=== PATIENT | male | born 1950 | race Caucasian/White ===

== ENCOUNTER 2017-08-25 13:30 | Inpatient (IN) | payer OTHER, SELFPAY ==
[2017-08-25] VITALS (20 sets, daily range): BP systolic 110–152; BP diastolic 39–118; PULSE 62–94; RESP 15–24; TEMP 37.6–38.6; O2SAT 93–100; BMI 20.5
--- NOTE | 2017-08-25 13:39 | DI.RAD.S_ITS ---
PROCEDURE: XR CHEST 1V INDICATIONS: ET TUBE AND NG TUBE PLACEMENT/ Post intubation TECHNIQUE: One view of the chest was acquired. COMPARISON: None. FINDINGS: Surgical changes and devices: Esophagogastric tube extends in normal position with the side port below the EG junction. Endotracheal tube tip approximates the kamar at approximately 2.6 cm above.. Lungs and pleura: No pleural effusions or pneumothorax. Lungs are abnormal with asymmetric mild alveolar infiltration behind the left heart when compared to the right lung base medially. Mediastinum: Mediastinal contours appear normal. Heart size is normal. Bones and chest wall: No suspicious bony lesions. Overlying soft tissues appear unremarkable. IMPRESSION: Asymmetric pneumonia pattern, left greater than right, best seen at the retrocardiac left lower lobe. Endotracheal tube approaches within 2.6 cm of the kamar, and could be withdrawn several centimeters safely. Esophagogastric tube in normal position. Dictated by: Kaden Murillo M.D. on 08/25/2017 at 14:03 Approved by: Kaden Murillo M.D. on 08/25/2017 at 14:04
[2017-08-25] MEDS: PROPOFOL 1,000 MG/100 ML VIAL 3.9 MG IV (13:50)
[2017-08-25] MEDS: PROPOFOL 200 MG/20 ML VIAL 100 MG IV ×2 (13:50→14:35)
--- NOTE | 2017-08-25 13:53 | ED.SEIZURE ---
HPI - Seizure General Chief Complaint: Seizure Stated Complaint: Altered mental status/ Seizure Time Seen by Provider: 08/25/17 13:36 Source: EMS Mode of arrival: EMS Limitations: other (Intubated) History of Present Illness HPI Narrative: HPI provided by EMS. EMS states that patient lives on [facility]. They state that patient is ?well-known ?to the paramedics [facility] for being noncompliant with his seizure medications. Is reported that the patient had a seizure this morning. EMS providing this report was the in flight refueling manager. They state that when they arrived the patient was no longer seizing. They stated that the seizure stopped after the ground paramedics had given the patient 5 mg of Versed IM. They stated that the patient was hypoxic to the 80s and ?dusky ?upon their evaluation. They intubated him with succinylcholine and etomidate without complication. They state that during the RSI process the patient did have another seizure. They gave the patient 10 mg of IV Versed which they stated. Seizure-like activity. OG tube placed in transport. Right EJ placed in transport. Patient was also given rocuronium approximately 1 hr prior to arrival here in the emergency department for transport. Related Data Home Medications Medication Instructions Recorded Confirmed aspirin 81 mg PO DAILY 08/25/17 08/25/17 atorvastatin 80 mg PO QPM 08/25/17 08/25/17 carvedilol 3.125 mg PO BID 08/25/17 08/25/17 clopidogrel 75 mg PO DAILY 08/25/17 08/25/17 lamotrigine 150 mg PO BID 08/25/17 08/25/17 nitroglycerin [Nitrostat] 0.4 mg SUBLINGUAL Q5M PRN 08/25/17 08/25/17 Allergies Allergy/AdvReac Type Severity Reaction Status Date / Time codeine Allergy Mild Verified 08/25/17 13:41 Review of Systems Review of Systems due to endotracheal tube and unobtainable due to mental status [facility] Comment: Patient with history of seizure disorder non compliant per EMS no other past medical history surgical history social history available. Exam Initial Vital Signs Initial Vital Signs: Vital Signs Pulse Rate 73 08/25/17 13:27 Respiratory Rate 17 08/25/17 13:27 Pulse Oximetry 100 08/25/17 13:27 Const General: well groomed, in distress (Intubated) and No ill appearing Nutritional Appearance: average body habitus Limitations: other limitations (Intubated) [facility] Head: normal to inspection, normocephalic and atraumatic Nose: external nose normal Mouth: oral mucosae normal Eyes Other: Pupils 2 mm equal bilateral minimally reactive to light Resp Other: Patient intubated with 7.5 tube breath sounds bilateral Cardio Rate: tachycardic Pulses: radial pulses present GI Inspection: non-distended Palpation: soft and No firm Skin General: no rashes or lesions noted, No jaundice and No petechiae Neuro Other: Patient intubated however does withdrawal to pain. Is making would appear to be purposeful movements with left upper extremity which appear to be movements towards the endotracheal tube. Has moved all 4 extremities spontaneously however not to command. Extrem General: normal to inspection Course Orders Ordered: ED Orders 08/25/17 13:38 Complete Blood Count AUTO DIFF Stat Comprehensive Metabolic Panel Stat Lipase Stat 08/25/17 13:39 XR chest 1V Stat 08/25/17 13:42 EKG-12 Lead Routine 08/25/17 14:02 Arterial Blood Gas Stat 08/25/17 14:21 Procalcitonin Stat Propofol (Propofol) 1,000 mg in 100 mls @ 0 mls/hr IV TITRATE YOLANDA; Protocol Discontinued Medications Fentanyl (Sublimaze) 50 mcg IV NOW ONE Stop: 08/25/17 14:20 Levetiracetam 1,000 mg/ Sodium (Chloride) 110 mls @ 440 mls/hr IV NOW ONE Stop: 08/25/17 13:39 Last Admin: 08/25/17 14:22 Dose: 440 mls/hr Propofol (Diprivan) 100 mg IV NOW ONE Stop: 08/25/17 14:28 Propofol (Diprivan) 100 mg IV NOW ONE Stop: 08/25/17 14:30 Vital Signs - 8 hr 08/25/17 13:27 08/25/17 13:35 08/25/17 14:00 Pulse Rate 73 74 74 Respiratory Rate 17 24 17 Blood Pressure [Right Arm] 148/118 H 136/63 H Pulse Oximetry 100 99 100 08/25/17 14:23 Pulse Rate 73 Respiratory Rate 17 Blood Pressure [Right Arm] 152/73 H Pulse Oximetry 100 MDM - Seizure Lab Data Lab Results 08/25/17 Range/Units 14:02 ABG pH 7.41 (7.35-7.45) ABG pCO2 41.4 (35-45) mmHg ABG pO2 89 (80-105) mmHg ABG HCO3 26 (23-27) mmol/L ABG Total CO2 27 (23-27) mmol/L ABG O2 Saturation 97 (95-100) % ABG Base Excess 1.0 (-2-3) mmol/L FiO2 50 Imaging Data Chest x-ray: Radiologist's impression: PROCEDURE: XR CHEST 1V INDICATIONS: ET TUBE AND NG TUBE PLACEMENT/ Post intubation TECHNIQUE: One view of the chest was acquired. COMPARISON: None. FINDINGS: Surgical changes and devices: Esophagogastric tube extends in normal position with the side port below the EG junction. Endotracheal tube tip approximates the kamar at approximately 2.6 cm above.. Lungs and pleura: No pleural effusions or pneumothorax. Lungs are abnormal with asymmetric mild alveolar infiltration behind the left heart when compared to the right lung base medially. Mediastinum: Mediastinal contours appear normal. Heart size is normal. Bones and chest wall: No suspicious bony lesions. Overlying soft tissues appear unremarkable. IMPRESSION: Asymmetric pneumonia pattern, left greater than right, best seen at the retrocardiac left lower lobe. Endotracheal tube approaches within 2.6 cm of the kamar, and could be withdrawn several centimeters safely. Esophagogastric tube in normal position. Dictated by: Kaden Murillo M.D. on 08/25/2017 at 14:03 ECG Data Attestation: I personally reviewed and interpreted this ECG as follows: Prior ECG tracings: not available for review Interpretation: Time 1342 hr Sinus tachycardia Ventricular rate of 102 As needed oval 214 milliseconds Normal axis Normal QRS Normal QTC No ST T wave changes MDM Narrative Medical decision making narrative: Patient arrived to the emergency department intubated as described in the HPI. Patient was making would appear to be purposeful movements reaching at his endotracheal tube. I have low suspicion that he is continuing to have a seizure. He was given propofol here in the emergency department for sedation. His FiO2 was decreased from 50% to 40% after the ABG. Chest x-ray shows tube in correct position. Also has some discussion about possible pneumonia however patient clinically does not have pneumonia and no reports of pneumonia prior to this. Will hold on any antibiotics for now. Discussed the case with Dr. De León who will admit the patient for continued observation and evaluation. I did talk with the patient's sister over the phone and informed her that the patient was being admitted to the hospital. She states that she will come to the hospital. Discharge Plan Departure Patient Disposition: Admitted As Inpatient Clinical Impression: Generalized seizure, Acute respiratory distress, Respiratory depression
[2017-08-25 14:12] LABS: HCO3 ABG 26 mmol/L (23-27); PCO2 ABG 41.4 mmHg (35-45); PO2 ABG 89 mmHg (80-105); TCO2 ABG 27 mmol/L (23-27); pH ABG 7.41 (7.35-7.45)
[2017-08-25 14:13] LABS: Fractionated Inspired Oxygen 50; Oxygen Saturation ABG 97 % (95-100)
[2017-08-25] MEDS: levETIRAcetam 1,000 MG in SODIUM CHLORIDE 0.9% 100 ML 440 ML IV (14:22)
[2017-08-25] MEDS: fentaNYL 100 MCG/2 ML INJ 50 MCG IV ×2 (14:30→14:54)
--- NOTE | 2017-08-25 14:38 | PC.NURSE ---
1341 rt changed to biteblock.
--- NOTE | 2017-08-25 14:39 | PC.NURSE ---
1349 tube placement good and ogt good placement per dr childress
[2017-08-25 14:51] LABS: Add Manual Diff / Slide Review NO; Basophils Percent Auto 0.5 % (0-2); Hemoglobin 11.9 g/dL (13.5-17.5); Lymphocytes Percent Auto 6.7 % (25-40); Mean Corpuscular HGB Conc 33.9 % (30-36); Mean Corpuscular Hemoglobin 30.6 PG (26-34); Mean Corpuscular Volume 90.1 fL (80-100); Monocytes Percent Auto 6.3 % (3-14); Neutrophils Absolute Auto 12700 /uL (3000-5900); Neutrophils Percent Auto 86.5 % (50-75); Platelet Count 179 X10^3/uL (150-400); Red Blood Cell Count 3.88 X10^6/uL (4.5-5.9); Red Cell Distribution Width 13.9 % (11.6-14.8); White Blood Cell Count 14.7 X10^3/uL (4.5-11.0)
[2017-08-25 15:06] LABS: Alanine Aminotransferase 27 IU/L (21-72); Albumin 4.1 g/dL (3.5-5.0); Albumin Globulin Ratio 1.6 (1.0-2.8); Alkaline Phosphatase 66 U/L (38-126); Aspartate Aminotransferase 26 IU/L (17-59); Bilirubin Total 0.9 mg/dL (0.2-1.3); Blood Urea Nitrogen 12 mg/dL (9-20); Calcium 9.2 mg/dL (8.4-10.2); Carbon Dioxide 27 mmol/L (22-32); Chloride 104 mmol/L (98-107); Estimated Glomerular Filt Rate > 60.0 mL/min (>60); Globulin 2.6 g/dL (1.7-4.1); Glucose 131 mg/dL (80-110); HEMOLYSIS < 15 (0-50); Lipase 22 U/L (23-300); Potassium 3.5 mmol/L (3.4-5.1); Sodium 141 mmol/L (137-145); Total Protein 6.7 g/dL (6.3-8.2)
[2017-08-25] MEDS: PROPOFOL 200 MG/20 ML VIAL 50 MG IV (15:21)
[2017-08-25 15:33] LABS: Procalcitonin < 0.05 ng/mL (<0.5)
[2017-08-25] MEDS: DEXTROSE 5%-0.9% NS 1,000 ML 100 ML IV (16:45)
--- NOTE | 2017-08-25 16:46 | PC.NURSE ---
Addendum entered by Christy Cornejo R.N. 08/25/17 21:19: Pt with increased wakefulness. Denies any recollection of events leading up to admission. Pt asking who found me? and expressing concerns about his dogs. Pt sister called to check pt status. Pt able to speak to her on the phone. Pt reports his sister will contact a neighbor about checking on animals. Pt states that he has a headache, temp 101.1. APAP given. Dr. De León into check on pt. Updated to pt status. Monitor. Bed alarm on. Original Note: Pt to room at 1540, transfer to bed via slider board. Pt restless and agitated. Reaching for tubes and wires, kicking legs. RT present for vent management. Dr. De León into see pt. Pt not currently alert enough to follow commands. Propofol stopped per verbal order from Dr. De León. Assess ability to extubate. 1610 - Pt restless and agitation. Intermittently opens eyes to command. Kicking feet and sitting up bed. Page placed to Dr. De León. Pt extubated to room air. Suction for clear secretions, OG tube removed with extubation. O2 sats 95%. Pt turns to right side lying. Moaning. Brisk stimuli to encourage deep breath and cough. Pt sister, Krysta, in to see pt. States that Pt has been having nausea and vomiting a couple of days she states past medical history is [place] with stent placement, Seizures, Hx of ETOH abuse 2 years sober. She also states that every time he gets sick, he ends up having a seizure and [place] Pt TAYLA is his girl friend Chloe Pena, who is currently out of state. Krysta, She will notify Chloe Sharma. Pt restless in bed and moaning, it hurts Pt able to state that his back hurts, position right side lying. Remain drowsy. Encourage pt not to pull at tubes and wires. O2 sats 94% on RA.
[2017-08-25] MEDS: levoFLOXacin 500 MG/100 ML PIGGYBACK 100 MG IV (16:57)
[2017-08-25] MEDS: CARVEDILOL 3.125 MG TABLET PO (20:30)
[2017-08-25] MEDS: lamoTRIgine 100 MG TABLET 150 MG PO (20:30)
[2017-08-25] MEDS: ACETAMINOPHEN 325 MG TABLET 650 MG PO (20:54)
--- NOTE | 2017-08-25 21:18 | PM.HP.1 ---
History of Present Illness Date Patient Seen: 08/25/17 Time Patient Seen: 21:18 Chief complaint: Altered mental status/ Seizure Narrative: 67-year-old male with the known seizure disorder had a prolonged seizure today paramedics were called he evidently was seizing when they arrived and gave him Versed intramuscularly that helped stop the seizure. He had problems of breathing during the postictal. And had to be intubated his saturation reportedly dropped down to 80. During the intubation there was some vomiting and possible aspiration. He required more Versed 10 mg IV given after the intubation he also received some paralytics and other sedation. Here in the emergency room he was placed on the ventilator the tube was remained in place he also had oral gastric tube placed and he required sedation to keep him from pulling out the tubes. Patient evidently has a long history of recurrent seizures that have been difficult to control this is not the 1st time he has had prolonged seizures and problems. The patient is currently still unable to give much of a history and family or friends note that he has been having vomiting for a couple of days and probably was not taking his medications due to the vomiting. Patient History Medical History Chronic back pain (Acute) Myocardial infarction (Acute) Seizure disorder (Acute) Surgical History History of heart artery stent (Acute) Family & Social History Social History: household members significant other Tobacco & Substance use: alcohol intake former Substance Use Type marijuana Meds Home Medications Medication Instructions Recorded Confirmed Type aspirin 81 mg PO DAILY 08/25/17 08/25/17 History atorvastatin 80 mg PO QPM 08/25/17 08/25/17 History carvedilol 3.125 mg PO BID 08/25/17 08/25/17 History clopidogrel 75 mg PO DAILY 08/25/17 08/25/17 History lamotrigine 150 mg PO BID 08/25/17 08/25/17 History nitroglycerin [Nitrostat] 0.4 mg SUBLINGUAL Q5M PRN 08/25/17 08/25/17 History Allergies Allergy/AdvReac Type Severity Reaction Status Date / Time codeine Allergy Mild Verified 08/25/17 13:41 Review of Systems Review of Systems unobtainable due to mental status Exam Vital Signs (past 8 hours): Vital Signs - 8 hr 08/25/17 13:27 08/25/17 13:35 08/25/17 14:00 Temperature 99.7 F H Pulse Rate 73 74 74 Respiratory Rate 17 24 17 Blood Pressure Blood Pressure [Right Arm] 148/118 H 136/63 H Pulse Oximetry 100 99 100 08/25/17 14:15 08/25/17 14:20 08/25/17 14:23 Temperature Pulse Rate 94 H 73 73 Respiratory Rate 20 17 Blood Pressure Blood Pressure [Right Arm] 136/62 H 152/73 H 152/73 H Pulse Oximetry 97 100 100 08/25/17 14:30 08/25/17 15:03 08/25/17 15:21 Temperature Pulse Rate 78 68 72 Respiratory Rate 17 18 15 Blood Pressure Blood Pressure [Right Arm] 147/71 H 142/69 H 135/68 H Pulse Oximetry 100 100 08/25/17 15:40 08/25/17 16:10 08/25/17 17:00 Temperature 101.5 F H Pulse Rate 67 81 62 Respiratory Rate 22 18 22 Blood Pressure 152/72 H 150/65 H 133/50 H Blood Pressure [Right Arm] Pulse Oximetry 100 95 93 08/25/17 18:17 08/25/17 20:00 08/25/17 20:30 Temperature 101.1 F H Pulse Rate 67 65 69 Respiratory Rate 19 20 Blood Pressure 119/39 L 129/56 H 129/56 H Blood Pressure [Right Arm] Pulse Oximetry 95 08/25/17 20:54 Temperature 101.1 F H Pulse Rate Respiratory Rate Blood Pressure Blood Pressure [Right Arm] Pulse Oximetry Pulse Oximetry 95 Fraction of Inspired Oxygen 50 Oxygen Delivery Method Room Air Narrative Exam Narrative: Initially intubated and sedated oral endotracheal tube in place Head atraumatic Neck supple Lungs is mild coarse breath sounds Heart tachycardic Abdomen soft nontender Lower extremities no edema Skin warm and dry Neuro exam moving all 4 extremities attended due to the sedation Objective Labs Result Diagrams: 08/25/17 14:44 08/25/17 14:44 Labs: Laboratory Results - last 24 hr 08/25/17 08/25/17 08/25/17 14:02 14:44 14:44 WBC 14.7 H RBC 3.88 L Hgb 11.9 L Hct 35.0 L MCV 90.1 MCH 30.6 MCHC 33.9 RDW 13.9 Plt Count 179 Neut % (Auto) 86.5 H Lymph % (Auto) 6.7 L [place] % (Auto) 6.3 Eos % (Auto) 0.0 L Baso % (Auto) 0.5 Neut # (Auto) 02594 H ABG pH 7.41 ABG pCO2 41.4 ABG pO2 89 ABG HCO3 26 ABG Total CO2 27 ABG O2 Saturation 97 ABG Base Excess 1.0 FiO2 50 Sodium 141 Potassium 3.5 Chloride 104 Carbon Dioxide 27 BUN 12 Creatinine 0.60 L Estimated GFR > 60.0 BUN/Creatinine Ratio 20.0 Glucose 131 H Calcium 9.2 Total Bilirubin 0.9 AST 26 ALT 27 Alkaline Phosphatase 66 Total Protein 6.7 Albumin 4.1 Globulin 2.6 Albumin/Globulin Ratio 1.6 Lipase 22 L Procalcitonin Nasal Screen MRSA (PCR) 08/25/17 08/25/17 14:44 Unknown WBC RBC Hgb Hct MCV MCH MCHC RDW Plt Count Neut % (Auto) Lymph % (Auto) [place] % (Auto) Eos % (Auto) Baso % (Auto) Neut # (Auto) ABG pH ABG pCO2 ABG pO2 ABG HCO3 ABG Total CO2 ABG O2 Saturation ABG Base Excess FiO2 Sodium Potassium Chloride Carbon Dioxide BUN Creatinine Estimated GFR BUN/Creatinine Ratio Glucose Calcium Total Bilirubin AST ALT Alkaline Phosphatase Total Protein Albumin Globulin Albumin/Globulin Ratio Lipase Procalcitonin < 0.05 Nasal Screen MRSA (PCR) Negative for mrsa Assessment & Plan Plan: Assessment/Plan Narrative: One. Respiratory failure due to a prolonged seizures and possible aspiration pneumonia. The patient seems to be doing well on the ventilator so we actually turn him to pressure support let him wake up and extubated him within an hour of him coming to the ICU. 2. Probable aspiration pneumonitis he is having low but with fever plan to culture the blood and place him on Levaquin he is oxygenating well now just on nasal cannula 3. Recurrent seizures plan to place him back on the lamotrigine 4. History of coronary disease no signs of ongoing ischemia 5. DVT prophylaxis Lovenox to be used Time Spent With Patient Time with patient: Greater than 35 minutes Quality VTE Deep Vein Thrombosis/Pulmonary Embolism Present on Admission: No
--- NOTE | 2017-08-25 21:25 | P.HP_ITS ---
History of Present Illness Date Patient Seen: 08/25/17 Time Patient Seen: 21:18 Chief complaint: Altered mental status/ Seizure Narrative: 67-year-old male with the known seizure disorder had a prolonged seizure today paramedics were called he evidently was seizing when they arrived and gave him Versed intramuscularly that helped stop the seizure. He had problems of breathing during the postictal. And had to be intubated his saturation reportedly dropped down to 80. During the intubation there was some vomiting and possible aspiration. He required more Versed 10 mg IV given after the intubation he also received some paralytics and other sedation. Here in the emergency room he was placed on the ventilator the tube was remained in place he also had oral gastric tube placed and he required sedation to keep him from pulling out the tubes. Patient evidently has a long history of recurrent seizures that have been difficult to control this is not the 1st time he has had prolonged seizures and problems. The patient is currently still unable to give much of a history and family or friends note that he has been having vomiting for a couple of days and probably was not taking his medications due to the vomiting. Patient History Medical History Chronic back pain (Acute) Myocardial infarction (Acute) Seizure disorder (Acute) Surgical History History of heart artery stent (Acute) Family & Social History Social History: household members significant other Tobacco & Substance use: alcohol intake former Substance Use Type marijuana Meds Home Medications Medication Instructions Recorded Confirmed Type aspirin 81 mg PO DAILY 08/25/17 08/25/17 History atorvastatin 80 mg PO QPM 08/25/17 08/25/17 History carvedilol 3.125 mg PO BID 08/25/17 08/25/17 History clopidogrel 75 mg PO DAILY 08/25/17 08/25/17 History lamotrigine 150 mg PO BID 08/25/17 08/25/17 History nitroglycerin [Nitrostat] 0.4 mg SUBLINGUAL Q5M PRN 08/25/17 08/25/17 History Allergies Allergy/AdvReac Type Severity Reaction Status Date / Time codeine Allergy Mild Verified 08/25/17 13:41 Review of Systems Review of Systems unobtainable due to mental status Exam Vital Signs (past 8 hours): Vital Signs - 8 hr 3 08/25/17 13:27 08/25/17 13:35 08/25/17 14:00 Temperature 99.7 F H Pulse Rate 73 74 74 Respiratory Rate 17 24 17 Blood Pressure Blood Pressure [Right Arm] 148/118 H 136/63 H Pulse Oximetry 100 99 100 3 08/25/17 14:15 08/25/17 14:20 08/25/17 14:23 Temperature Pulse Rate 94 H 73 73 Respiratory Rate 20 17 Blood Pressure Blood Pressure [Right Arm] 136/62 H 152/73 H 152/73 H Pulse Oximetry 97 100 100 3 08/25/17 14:30 08/25/17 15:03 08/25/17 15:21 Temperature Pulse Rate 78 68 72 Respiratory Rate 17 18 15 Blood Pressure Blood Pressure [Right Arm] 147/71 H 142/69 H 135/68 H Pulse Oximetry 100 100 3 08/25/17 15:40 08/25/17 16:10 08/25/17 17:00 Temperature 101.5 F H Pulse Rate 67 81 62 Respiratory Rate 22 18 22 Blood Pressure 152/72 H 150/65 H 133/50 H Blood Pressure [Right Arm] Pulse Oximetry 100 95 93 3 08/25/17 18:17 08/25/17 20:00 08/25/17 20:30 Temperature 101.1 F H Pulse Rate 67 65 69 Respiratory Rate 19 20 Blood Pressure 119/39 L 129/56 H 129/56 H Blood Pressure [Right Arm] Pulse Oximetry 95 3 08/25/17 20:54 Temperature 101.1 F H Pulse Rate Respiratory Rate Blood Pressure Blood Pressure [Right Arm] Pulse Oximetry Pulse Oximetry 95 Fraction of Inspired Oxygen 50 Oxygen Delivery Method Room Air Narrative Exam Narrative: Initially intubated and sedated oral endotracheal tube in place Head atraumatic Neck supple Lungs is mild coarse breath sounds Heart tachycardic Abdomen soft nontender Lower extremities no edema Skin warm and dry Neuro exam moving all 4 extremities attended due to the sedation Objective Labs Result Diagrams: 08/25/17 14:44 08/25/17 14:44 Labs: Laboratory Results - last 24 hr 08/25/17 08/25/17 08/25/17 14:02 14:44 14:44 WBC 14.7 H RBC 3.88 L Hgb 11.9 L Hct 35.0 L MCV 90.1 MCH 30.6 MCHC 33.9 RDW 13.9 Plt Count 179 Neut % (Auto) 86.5 H Lymph % (Auto) 6.7 L [place] % (Auto) 6.3 Eos % (Auto) 0.0 L Baso % (Auto) 0.5 Neut # (Auto) 47789 H ABG pH 7.41 ABG pCO2 41.4 ABG pO2 89 ABG HCO3 26 ABG Total CO2 27 ABG O2 Saturation 97 ABG Base Excess 1.0 FiO2 50 Sodium 141 Potassium 3.5 Chloride 104 Carbon Dioxide 27 BUN 12 Creatinine 0.60 L Estimated GFR > 60.0 BUN/Creatinine Ratio 20.0 Glucose 131 H Calcium 9.2 Total Bilirubin 0.9 AST 26 ALT 27 Alkaline Phosphatase 66 Total Protein 6.7 Albumin 4.1 Globulin 2.6 Albumin/Globulin Ratio 1.6 Lipase 22 L Procalcitonin Nasal Screen MRSA (PCR) 08/25/17 08/25/17 14:44 Unknown WBC RBC Hgb Hct MCV MCH MCHC RDW Plt Count Neut % (Auto) Lymph % (Auto) [place] % (Auto) Eos % (Auto) Baso % (Auto) Neut # (Auto) ABG pH ABG pCO2 ABG pO2 ABG HCO3 ABG Total CO2 ABG O2 Saturation ABG Base Excess FiO2 Sodium Potassium Chloride Carbon Dioxide BUN Creatinine Estimated GFR BUN/Creatinine Ratio Glucose Calcium Total Bilirubin AST ALT Alkaline Phosphatase Total Protein Albumin Globulin Albumin/Globulin Ratio Lipase Procalcitonin < 0.05 Nasal Screen MRSA (PCR) Negative for mrsa Assessment & Plan Plan: Assessment/Plan Narrative: One. Respiratory failure due to a prolonged seizures and possible aspiration pneumonia. The patient seems to be doing well on the ventilator so we actually turn him to pressure support let him wake up and extubated him within an hour of him coming to the ICU. 2. Probable aspiration pneumonitis he is having low but with fever plan to culture the blood and place him on Levaquin he is oxygenating well now just on nasal cannula 3. Recurrent seizures plan to place him back on the lamotrigine 4. History of coronary disease no signs of ongoing ischemia 5. DVT prophylaxis Lovenox to be used Time Spent With Patient Time with patient: Greater than 35 minutes Quality VTE Deep Vein Thrombosis/Pulmonary Embolism Present on Admission: No
[2017-08-26] VITALS (12 sets, daily range): BP systolic 95–145; BP diastolic 44–73; PULSE 54–81; RESP 16–21; TEMP 37.2–37.8; O2SAT 95–98; BMI 20.8
[2017-08-26] MEDS: DEXTROSE 5%-0.9% NS 1,000 ML 100 ML IV (04:00)
[2017-08-26] MEDS: lamoTRIgine 100 MG TABLET 150 MG PO ×2 (09:38→20:31)
[2017-08-26] MEDS: ASPIRIN EC 81 MG TABLET PO (09:38)
[2017-08-26] MEDS: CLOPIDOGREL 75 MG TABLET PO (09:38)
[2017-08-26] MEDS: PANTOPRAZOLE 40 MG VIAL IV (09:38)
[2017-08-26] MEDS: ENOXAPARIN 40 MG/0.4 ML SYRINGE SUBCUT (09:40)
--- NOTE | 2017-08-26 09:54 | PC.NURSE ---
Pt requesting valuables from safe. Returned wallet per request. Counted money back and verified CC. Pt agrees/signs. He wishes to retain valuables at bedside at this time. Reviewed valuable policy.
--- NOTE | 2017-08-26 12:04 | PM.PN.1 ---
Subjective Date Patient Seen: 08/26/17 Time Patient Seen: 11:00 Interval history: Patient has not had recurrent seizure. He has mild nausea. [place] for different illnesses. Exam Vital Signs (past 8 hours): Vital Signs - 8 hr 08/26/17 04:51 08/26/17 06:00 08/26/17 08:05 Temperature 99 F 99.3 F Pulse Rate 54 L 66 Respiratory Rate 16 16 Blood Pressure 104/53 L 128/59 H Pulse Oximetry 96 98 08/26/17 11:56 Temperature 99.5 F Pulse Rate 58 L Respiratory Rate 16 Blood Pressure 144/67 H Pulse Oximetry 98 Pulse Oximetry 98 Fraction of Inspired Oxygen 50 Oxygen Delivery Method Room Air Narrative Exam Narrative: General: Elderly man in no acute distress Lungs: Clear to auscultation bilaterally Heart: Regular rhythm, no murmur appreciated Abdomen: Soft, nontender Or lower extremity: No pitting edema Neuro: Alert and oriented x3. Normal muscle strains. Psychiatric: Depressed mood Objective Labs Result Diagrams: 08/25/17 14:44 08/25/17 14:44 Labs: Laboratory Results - last 24 hr 08/25/17 08/25/17 08/25/17 14:02 14:44 14:44 WBC 14.7 H RBC 3.88 L Hgb 11.9 L Hct 35.0 L MCV 90.1 MCH 30.6 MCHC 33.9 RDW 13.9 Plt Count 179 Neut % (Auto) 86.5 H Lymph % (Auto) 6.7 L [place] % (Auto) 6.3 Eos % (Auto) 0.0 L Baso % (Auto) 0.5 Neut # (Auto) 69098 H ABG pH 7.41 ABG pCO2 41.4 ABG pO2 89 ABG HCO3 26 ABG Total CO2 27 ABG O2 Saturation 97 ABG Base Excess 1.0 FiO2 50 Sodium 141 Potassium 3.5 Chloride 104 Carbon Dioxide 27 BUN 12 Creatinine 0.60 L Estimated GFR > 60.0 BUN/Creatinine Ratio 20.0 Glucose 131 H Calcium 9.2 Total Bilirubin 0.9 AST 26 ALT 27 Alkaline Phosphatase 66 Total Protein 6.7 Albumin 4.1 Globulin 2.6 Albumin/Globulin Ratio 1.6 Lipase 22 L Procalcitonin Nasal Screen MRSA (PCR) 08/25/17 08/25/17 14:44 Unknown WBC RBC Hgb Hct MCV MCH MCHC RDW Plt Count Neut % (Auto) Lymph % (Auto) [place] % (Auto) Eos % (Auto) Baso % (Auto) Neut # (Auto) ABG pH ABG pCO2 ABG pO2 ABG HCO3 ABG Total CO2 ABG O2 Saturation ABG Base Excess FiO2 Sodium Potassium Chloride Carbon Dioxide BUN Creatinine Estimated GFR BUN/Creatinine Ratio Glucose Calcium Total Bilirubin AST ALT Alkaline Phosphatase Total Protein Albumin Globulin Albumin/Globulin Ratio Lipase Procalcitonin < 0.05 Nasal Screen MRSA (PCR) Negative for mrsa Assessment & Plan Plan: Assessment/Plan Narrative: 1. Acute Respiratory failure due to a prolonged seizures and possible aspiration pneumonia. Resolved. Patient was extubated yesterday 2. Probable aspiration pneumonitis: He was started on Levaquin yesterday. We will change his antibiotics to oral Augmentin. 3. Recurrent seizures, secondary to unable to keep oral medications down due to severe nausea and vomiting. He was restarted on lamotrigine per outpatient dosing. We will continue seizure precaution. 4. History of coronary disease no signs of ongoing ischemia. Patient was noted to be bradycardic earlier this morning. His Coreg was on hold. We will continue telemetry monitoring. Restart low-dose Coreg 5. Nausea: His nausea has improved. We will use Zofran as needed. Quality VTE Deep Vein Thrombosis/Pulmonary Embolism Present on Admission: Yes
--- NOTE | 2017-08-26 12:10 | P.PN_ITS ---
Subjective Date Patient Seen: 08/26/17 Time Patient Seen: 11:00 Interval history: Patient has not had recurrent seizure. He has mild nausea. [place] for different illnesses. Exam Vital Signs (past 8 hours): Vital Signs - 8 hr 3 08/26/17 04:51 08/26/17 06:00 08/26/17 08:05 Temperature 99 F 99.3 F Pulse Rate 54 L 66 Respiratory Rate 16 16 Blood Pressure 104/53 L 128/59 H Pulse Oximetry 96 98 3 08/26/17 11:56 Temperature 99.5 F Pulse Rate 58 L Respiratory Rate 16 Blood Pressure 144/67 H Pulse Oximetry 98 Pulse Oximetry 98 Fraction of Inspired Oxygen 50 Oxygen Delivery Method Room Air Narrative Exam Narrative: General: Elderly man in no acute distress Lungs: Clear to auscultation bilaterally Heart: Regular rhythm, no murmur appreciated Abdomen: Soft, nontender Or lower extremity: No pitting edema Neuro: Alert and oriented x3. Normal muscle strains. Psychiatric: Depressed mood Objective Labs Result Diagrams: 08/25/17 14:44 08/25/17 14:44 Labs: Laboratory Results - last 24 hr 08/25/17 08/25/17 08/25/17 14:02 14:44 14:44 WBC 14.7 H RBC 3.88 L Hgb 11.9 L Hct 35.0 L MCV 90.1 MCH 30.6 MCHC 33.9 RDW 13.9 Plt Count 179 Neut % (Auto) 86.5 H Lymph % (Auto) 6.7 L [place] % (Auto) 6.3 Eos % (Auto) 0.0 L Baso % (Auto) 0.5 Neut # (Auto) 01535 H ABG pH 7.41 ABG pCO2 41.4 ABG pO2 89 ABG HCO3 26 ABG Total CO2 27 ABG O2 Saturation 97 ABG Base Excess 1.0 FiO2 50 Sodium 141 Potassium 3.5 Chloride 104 Carbon Dioxide 27 BUN 12 Creatinine 0.60 L Estimated GFR > 60.0 BUN/Creatinine Ratio 20.0 Glucose 131 H Calcium 9.2 Total Bilirubin 0.9 AST 26 ALT 27 Alkaline Phosphatase 66 Total Protein 6.7 Albumin 4.1 Globulin 2.6 Albumin/Globulin Ratio 1.6 Lipase 22 L Procalcitonin Nasal Screen MRSA (PCR) 08/25/17 08/25/17 14:44 Unknown WBC RBC Hgb Hct MCV MCH MCHC RDW Plt Count Neut % (Auto) Lymph % (Auto) [place] % (Auto) Eos % (Auto) Baso % (Auto) Neut # (Auto) ABG pH ABG pCO2 ABG pO2 ABG HCO3 ABG Total CO2 ABG O2 Saturation ABG Base Excess FiO2 Sodium Potassium Chloride Carbon Dioxide BUN Creatinine Estimated GFR BUN/Creatinine Ratio Glucose Calcium Total Bilirubin AST ALT Alkaline Phosphatase Total Protein Albumin Globulin Albumin/Globulin Ratio Lipase Procalcitonin < 0.05 Nasal Screen MRSA (PCR) Negative for mrsa Assessment & Plan Plan: Assessment/Plan Narrative: 1. Acute Respiratory failure due to a prolonged seizures and possible aspiration pneumonia. Resolved. Patient was extubated yesterday 2. Probable aspiration pneumonitis: He was started on Levaquin yesterday. We will change his antibiotics to oral Augmentin. 3. Recurrent seizures, secondary to unable to keep oral medications down due to severe nausea and vomiting. He was restarted on lamotrigine per outpatient dosing. We will continue seizure precaution. 4. History of coronary disease no signs of ongoing ischemia. Patient was noted to be bradycardic earlier this morning. His Coreg was on hold. We will continue telemetry monitoring. Restart low-dose Coreg 5. Nausea: His nausea has improved. We will use Zofran as needed. Quality VTE Deep Vein Thrombosis/Pulmonary Embolism Present on Admission: Yes
--- NOTE | 2017-08-26 12:27 | CM.DANOTE ---
Addendum entered by Brittny Nathan 08/26/17 12:43: Care Management will continue to follow and support a safe discharge Original Note: Met with patient today. Alert and oriented, but upset about his current medical condition. Lives [address] [facility] [address] with his significant other, Chloe Sharma, who may be back tomorrow. Stated that he has been independent with ambulation, but has had seizures before. Discussed discharge, and he stated that he has friends that can drive him home, if his significant is not back by then. Does not feel that he needs any home health at this time. Patient may be discharged in a couple of days Discharge Planning/Care Management CM Discharge Assessment Start: 08/26/17 12:19 Freq: Status: Active Protocol: Document 08/26/17 12:20 TBD (Rec: 08/26/17 12:27 TBD [id number]) Discharge Planning Assessment History Provided By Patient Has Patient been admitted in last 30 No days? Is this patient on Medicare? Yes Prior Living Arrangements House Household Members significant other Type of transporation used prior to Relies on Others admit Independent with ADL's Yes Is patient alert and oriented? Yes Discharge Plan Home Transportation Arrangement Patient has friends and significant other to assist with transportation. If significant other is not back tomorrow, stated that he has friends that can drive him. Review Status In Process Next Review Type Continued Stay Review
[2017-08-26] MEDS: ONDANSETRON 4 MG/2 ML INJ IV (13:05)
[2017-08-26] MEDS: AMOXICILLIN/CLAV 875/125 MG 1 TAB PO ×2 (13:05→20:30)
[2017-08-26] MEDS: ACETAMINOPHEN 325 MG TABLET 650 MG PO ×2 (13:06→20:30)
--- NOTE | 2017-08-26 14:55 | PT.IIE ---
Current Diagnoses Acute respiratory failure, unspecified whether with hypoxia or hypercapnia (08/25/17) Surgical History (Last Updated 08/25/17 @ 16:42 by Chirsty Cornejo RN) History of heart artery stent (Acute) Medical History (Last Updated 08/25/17 @ 21:22 by Don De León MD) Chronic back pain (Acute) Myocardial infarction (Acute) Seizure disorder (Acute) Physical Therapy Inpatient Evaluation/Re-Eval M1 PT/OT-IP Prior Functional Status Start: 08/26/17 15:59 Freq: NEEDED Status: Active Protocol: Document 08/26/17 14:55 AB (Rec: 08/26/17 16:15 AB [id number]) Medical Review Prior Functional Status Medical History Reviewed Yes Mobility and Gait pt stated that he is independent with ambulation without AD Activities of Daily Living and IADL's stated that he only takes a shower when girlfriend is around to supervise him Social History Household Members significant other Living Arrangements House Number of Floors (Floors) One Floor Number of Stairs To Enter/Railing? no steps to enter Home Environment Tub/Shower Home Equipment Straight Cane Grab Bars Near Toilet Grab Bars In Shower Additional Social History Comment stated that he has hand rails around the house. stated that his girlfriend is on a retreat in [place] and will not be back for 1-2 weeks but stated that she is looking for somebody to be with him at home. M2 PT-IP Current Condition Start: 08/26/17 15:59 Freq: NEEDED Status: Active Protocol: Document 08/26/17 14:55 AB (Rec: 08/26/17 16:15 AB [id number]) Physical Therapy Current Condition Current Condition Evaluation Date 08/26/17 Treatment Diagnosis seizure; acute respiratory distress; difficulty in walking Onset Date 08/25/17 Precautions Other Precautions seizures M3 PT-IP Subjective Start: 08/26/17 15:59 Freq: NEEDED Status: Active Protocol: Document 08/26/17 14:55 AB (Rec: 08/26/17 16:15 AB [id number]) Subjective Physical Therapy Visit Type Type Initial Evaluation Visit Start Time 14:55 Visit Stop Time 15:20 Total Visit Minutes 25 Number of PHLEBOTOMY TECHNOLOGIST Visits 0 Physical Therapy Visit Comments Patient Comments i am depress Therapy Pain Assessment Pain Present Pain Present Denied Pain M4 PT-IP Mobility and Gait Start: 08/26/17 15:59 Freq: NEEDED Status: Active Protocol: Document 08/26/17 14:55 AB (Rec: 08/26/17 16:15 AB [id number]) PT-Bed Mobility Assessment Supine to Sit Supine to Sit Standby Assistance Sit to Supine Sit to Supine Standby Assistance Scooting Scooting to Edge of Bed Standby Assistance PT-Transfer Assessment Sit to and From Stand Sit to and from Stand Standby Assistance Equipment Transfer Assistive Device None Gait Belt Orthotic/Prosthetic Devices or Brace: No Gait Assessment Gait Gait Assistance Required: Standby Assistance Distance (Feet) (feet) 40 Able to Maintain Weight Bearing Status Yes During Gait Assistive Devices Assistive Device None Gait Belt Orthotic/Prosthetic Devices or Brace: No Factors Limiting Gait Function Factors Limiting Gait Function Decreased Activity Tolerance Poor Safety Awareness Comments Gait Comments pt ambulated with FWW initially in room ~ 30 ft requiring SBA. Assessed safety with ambulation without AD and pt requires SBA. pt can be impulsvie and cued to slow down. PT-Balance Assessment Sitting Balance and Reactions Static Sitting Balance Ability Good Dynamic Sitting Balance Ability Good Standing Balance and Reactions Static Standing Balance Ability Good Dynamic Standing Balance Ability Fair M5 PT-IP Objective Assessments Start: 08/26/17 15:59 Freq: NEEDED Status: Active Protocol: Document 08/26/17 14:55 AB (Rec: 08/26/17 16:15 AB [id number]) Orientation Orientation/Cognition Level of Alertness Alert Orientation Name Age Birthday Month Date Year Day of Week Place Situation Safety Awareness Decreased Safety Awareness Gross Range of Motion Lower Extremity ROM Assessment Within Functional Limits Strength Lower Extremity Strength Assessment Within Functional Limits M6 PT-IP Treatment Start: 08/26/17 15:59 Freq: NEEDED Status: Active Protocol: Document 08/26/17 14:55 AB (Rec: 08/26/17 16:15 AB [id number]) Physical Therapy Treatment Education Education Provided Safety M7 PT-IP Assessment and Plan Start: 08/26/17 15:59 Freq: NEEDED Status: Active Protocol: Document 08/26/17 14:55 AB (Rec: 08/26/17 16:15 AB [id number]) PT Summary Assessment and Plan Potential Rehabilitation Potential Good Status of Condition at Evaluation Stable Summary Impairments Balance Gait Activity Tolerance Assessment Summary pt requiring SBA with mobility but can be impulsive. pt want to go home but at this time, does not have anybody to assist him at home. stated that his girlfriend is trying to get somebody to stay with him. Goals Bed Mobility Goal Independent Transfer Goal Independent Gait Goal Independent Gait Distance 200 Days to Meet Goals 3 Frequency of Treatment Frequency Of Treatment Once a Day Treatment Plan Physical Therapy Treatment Plan Bed Mobility Training Transfer Training Gait Training Therapeutic Exercise Balance Retraining Discharge Planning Neuromuscular Re-ed Other Recommendations and Next Treatment long distance ambulation Focus Recommendations To Nursing Amount of Assist Needed Standby Assistance Discharge Recommendations PT Discharge Recommendations Home with Assistance Provider Visit Care Team Role Provider Type Roel Oseguera MD Family Provider Physician Primary Care Provider Specialty: Family Practice Guillermo Molina DO Emergency Provider Physician Specialty: Emergency Medicine Don De León MD Admit Provider Physician Attending Provider Specialty: Internal Medicine
[2017-08-26 17:44] LABS: Add Manual Diff / Slide Review NO; Basophils Percent Auto 0.4 % (0-2); Eosinophils Percent Auto 0.2 % (2-4); Hematocrit 35.5 % (41-53); Hemoglobin 11.8 g/dL (13.5-17.5); Lymphocytes Percent Auto 18.7 % (25-40); Mean Corpuscular HGB Conc 33.3 % (30-36); Mean Corpuscular Hemoglobin 30.4 PG (26-34); Mean Corpuscular Volume 91.5 fL (80-100); Monocytes Percent Auto 10.9 % (3-14); Neutrophils Absolute Auto 7000 /uL (3000-5900); Neutrophils Percent Auto 69.8 % (50-75); Platelet Count 153 X10^3/uL (150-400); Red Blood Cell Count 3.88 X10^6/uL (4.5-5.9); Red Cell Distribution Width 13.9 % (11.6-14.8)
[2017-08-26 17:50] LABS: Alanine Aminotransferase 21 IU/L (21-72); Albumin Globulin Ratio 1.5 (1.0-2.8); Alkaline Phosphatase 57 U/L (38-126); Aspartate Aminotransferase 72 IU/L (17-59); BUN Creatinine Ratio 18.3 (6-22); Bilirubin Total 0.8 mg/dL (0.2-1.3); Blood Urea Nitrogen 11 mg/dL (9-20); Calcium 8.8 mg/dL (8.4-10.2); Carbon Dioxide 28 mmol/L (22-32); Chloride 103 mmol/L (98-107); Estimated Glomerular Filt Rate > 60.0 mL/min (>60); Globulin 2.7 g/dL (1.7-4.1); Glucose 102 mg/dL (80-110); HEMOLYSIS 19 (0-50); Potassium 3.2 mmol/L (3.4-5.1); Sodium 140 mmol/L (137-145); Total Protein 6.7 g/dL (6.3-8.2)
[2017-08-26] MEDS: ATORVASTATIN 20 MG TABLET 80 MG PO (18:04)
[2017-08-26] MEDS: CARVEDILOL 3.125 MG TABLET PO (20:32)
--- NOTE | 2017-08-26 21:06 | PC.NURSE ---
Pt expressing concerns r/t recurrent seizures and current state of health. I am trying to do everything right. Allowed to express frustration, educated to medication, encouraged follow up with neurologist, discussed potential discharge, assisted pt to explore available resources, reassurance provided. Pt ambulate into the bathroom to void. Currently denies pain. Temp 100.1 pt declined to have staff adjust thermostat, reports feeling cold. APAP given. Using call light appropriately.
[2017-08-27] VITALS: BP 145/61; PULSE 62; RESP 18; TEMP 37.1; O2SAT 98
[2017-08-27 05:27] VITALS: BP 165/84; PULSE 61; RESP 18; TEMP 37.1; O2SAT 97
[2017-08-27 05:44] LABS: Cholesterol 83 mg/dL (140-199); HDL Cholesterol 38 mg/dL (40-60); LDL Cholesterol Calculated 31 mg/dL (<100); Triglycerides 72 mg/dL (35-150)
[2017-08-27 05:45] LABS: BUN Creatinine Ratio 18.3 (6-22); Blood Urea Nitrogen 11 mg/dL (9-20); Calcium 8.7 mg/dL (8.4-10.2); Carbon Dioxide 29 mmol/L (22-32); Chloride 105 mmol/L (98-107); Estimated Glomerular Filt Rate > 60.0 mL/min (>60); Glucose 99 mg/dL (80-110); HEMOLYSIS < 15 (0-50); Potassium 3.2 mmol/L (3.4-5.1); Sodium 143 mmol/L (137-145)
[2017-08-27 08:36] VITALS: BP 140/69; PULSE 57; RESP 16; TEMP 37.2; O2SAT 97
[2017-08-27] MEDS: ASPIRIN EC 81 MG TABLET PO (08:42)
[2017-08-27] MEDS: AMOXICILLIN/CLAV 875/125 MG 1 TAB PO ×2 (08:42→20:58)
[2017-08-27] MEDS: PANTOPRAZOLE 40 MG VIAL IV (08:42)
[2017-08-27] MEDS: CLOPIDOGREL 75 MG TABLET PO (08:42)
[2017-08-27] MEDS: ENOXAPARIN 40 MG/0.4 ML SYRINGE SUBCUT (08:42)
[2017-08-27] MEDS: ACETAMINOPHEN 325 MG TABLET 650 MG PO (08:44)
[2017-08-27] MEDS: ONDANSETRON 4 MG/2 ML INJ IV (08:45)
[2017-08-27] MEDS: lamoTRIgine 100 MG TABLET 150 MG PO ×2 (08:49→20:58)
[2017-08-27] MEDS: POTASSIUM CHLORIDE 20 MEQ TAB 40 MEQ PO (11:19)
--- NOTE | 2017-08-27 12:11 | PM.DS.1 ---
History of Present Illness Date Patient Seen: 08/27/17 Time Patient Seen: 11:00 Chief complaint: Altered mental status/ Seizure Narrative: 67-year-old male with the known seizure disorder had a prolonged seizure today paramedics were called he evidently was seizing when they arrived and gave him Versed intramuscularly that helped stop the seizure. He had problems of breathing during the postictal. And had to be intubated his saturation reportedly dropped down to 80. During the intubation there was some vomiting and possible aspiration. He required more Versed 10 mg IV given after the intubation he also received some paralytics and other sedation. Here in the emergency room he was placed on the ventilator the tube was remained in place he also had oral gastric tube placed and he required sedation to keep him from pulling out the tubes. Patient evidently has a long history of recurrent seizures that have been difficult to control this is not the 1st time he has had prolonged seizures and problems. The patient is currently still unable to give much of a history and family or friends note that he has been having vomiting for a couple of days and probably was not taking his medications due to the vomiting. Discharge Providers Date of admission: 08/25/17 15:25 Primary care physician: Roel Oseguera MD Consults: 08/25/17 15:42 Consult to Dietitian, Adult Routine Comment: Reason For Exam: Patient on Ventilator and NPO 08/26/17 11:30 Consult to Physical Therapy Evaluate & Treat Comment: Physician Instructions: Evaluate and Treat Discharge provider: Maile Edgar MD Discharge Date: 08/27/17 Summary Discharge Diagnosis: 1. Prolonged seizure secondary to unable to keep medication down due to nausea 2. Acute respiratory failure due to prolonged seizure and possible aspiration pneumonia 3. Probable aspiration pneumonia 4. History of coronary artery disease 5. Bradycardia, possibly secondary to side effect of beta-lisa Hospital Course: Patient was intubated prior to arrival at the hospital hospital for prolonged seizure and airway protection. He was extubated on August 25, 2017. He was restarted on Lamictal per outpatient dosing. He also received IV Keppra. He has not had any recurrent seizure since hospital admission. He is going to be discharged home on outpatient dosing of Lamictal. He will follow up with his neurologist as outpatient. He was initially treated with IV Levaquin for possible aspiration pneumonia. Antibiotics was switched to oral Augmentin on August 26, 2017. We will treat him for total of 7 day course. I will also give him a prescription for Zofran in case he has recurrent nausea. Patient was noted to be bradycardic while he was in the hospital. His heart rate was in the 40s to 50s. Carvedilol was on hold due to bradycardia. Status at Discharge Cognitive/behavioral status at discharge: Alert and oriented x3 Functional status at discharge: independent ambulation Overall status at discharge: patient is back to baseline Time Spent with Patient Greater than 30 minutes Exam Vital Signs (past 8 hours): Vital Signs - 8 hr 08/27/17 05:27 08/27/17 08:36 Temperature 98.8 F 99.0 F Pulse Rate 61 57 L Respiratory Rate 18 16 Blood Pressure 165/84 H 140/69 H Pulse Oximetry 97 97 Pulse Oximetry 97 Fraction of Inspired Oxygen 50 Oxygen Delivery Method Room Air Objective Labs Result Diagrams: 08/26/17 15:15 08/27/17 05:05 Labs: Laboratory Results - last 24 hr 08/25/17 08/26/17 08/26/17 15:45 15:15 15:15 WBC 10.0 RBC 3.88 L Hgb 11.8 L Hct 35.5 L MCV 91.5 MCH 30.4 MCHC 33.3 RDW 13.9 Plt Count 153 Neut % (Auto) 69.8 Lymph % (Auto) 18.7 L [place] % (Auto) 10.9 Eos % (Auto) 0.2 L Baso % (Auto) 0.4 Neut # (Auto) 7000 H ABG pH Cancelled ABG pCO2 Cancelled ABG pO2 Cancelled ABG HCO3 Cancelled ABG Total CO2 Cancelled ABG O2 Saturation Cancelled ABG Base Excess Cancelled FiO2 Cancelled Sodium 140 Potassium 3.2 L Chloride 103 Carbon Dioxide 28 BUN 11 Creatinine 0.60 L Estimated GFR > 60.0 BUN/Creatinine Ratio 18.3 Glucose 102 Calcium 8.8 Total Bilirubin 0.8 AST 72 H ALT 21 Alkaline Phosphatase 57 Total Protein 6.7 Albumin 4.0 Globulin 2.7 Albumin/Globulin Ratio 1.5 Triglycerides Cholesterol LDL Cholesterol, Calc HDL Cholesterol 08/27/17 08/27/17 05:05 05:05 WBC RBC Hgb Hct MCV MCH MCHC RDW Plt Count Neut % (Auto) Lymph % (Auto) [place] % (Auto) Eos % (Auto) Baso % (Auto) Neut # (Auto) ABG pH ABG pCO2 ABG pO2 ABG HCO3 ABG Total CO2 ABG O2 Saturation ABG Base Excess FiO2 Sodium 143 Potassium 3.2 L Chloride 105 Carbon Dioxide 29 BUN 11 Creatinine 0.60 L Estimated GFR > 60.0 BUN/Creatinine Ratio 18.3 Glucose 99 Calcium 8.7 Total Bilirubin AST ALT Alkaline Phosphatase Total Protein Albumin Globulin Albumin/Globulin Ratio Triglycerides 72 Cholesterol 83 L LDL Cholesterol, Calc 31 HDL Cholesterol 38 L Discharge Plan Discharge Plan Patient Disposition: Home, Self-Care Provider Discharge Instructions Diet: Low-cholesterol Discharge Data Primary Care Provider: Roel Oseguera Attending Provider: Don De León Admit Date/Time: 08/25/17 15:25 Discharge Interventions Interventions: Discharge assessment Last Done: 08/26/17 09:55 Quality VTE Deep Vein Thrombosis/Pulmonary Embolism Present on Admission: Yes
--- NOTE | 2017-08-27 14:54 | PT.IPTN ---
Current Diagnoses Acute respiratory failure, unspecified whether with hypoxia or hypercapnia (08/25/17) Physical Therapy Treatment Note M2 PT-IP Current Condition Start: 08/26/17 15:59 Freq: NEEDED Status: Active Protocol: Document 08/27/17 09:40 TMS (Rec: 08/27/17 14:54 TMS [email or web address]) Physical Therapy Current Condition Current Condition Evaluation Date 08/26/17 Treatment Diagnosis seizure; acute respiratory distress; difficulty in walking Onset Date 08/25/17 Precautions Other Precautions seizures M3 PT-IP Subjective Start: 08/26/17 15:59 Freq: NEEDED Status: Active Protocol: Document 08/27/17 09:40 TMS (Rec: 08/27/17 14:54 TMS [email or web address]) Subjective Physical Therapy Visit Type Type Treatment Note Visit Start Time 09:10 Visit Stop Time 09:35 Total Visit Minutes 25 Number of SLATE SPLITTER Visits 1 Physical Therapy Visit Comments Patient Comments Pt. states he's hoping to go home today, needs to arrange ride. State's he's back to his baseline, feeling good today. Therapy Pain Assessment Pain Present Pain Present Denied Pain M4 PT-IP Mobility and Gait Start: 08/26/17 15:59 Freq: NEEDED Status: Active Protocol: Document 08/27/17 09:40 TMS (Rec: 08/27/17 14:54 TMS [email or web address]) PT-Bed Mobility Assessment Supine to Sit Supine to Sit Standby Assistance Scooting Scooting to Edge of Bed Independent PT-Transfer Assessment Sit to and From Stand Sit to and from Stand Standby Assistance Gait Assessment Gait Gait Assistance Required: Standby Assistance Distance (Feet) (feet) 120 Able to Maintain Weight Bearing Status Yes During Gait Assistive Devices Assistive Device None Gait Belt Front Wheeled Walker Orthotic/Prosthetic Devices or Brace: No Gait Deviations General Gait Pattern Narrow Based Gait Factors Limiting Gait Function Factors Limiting Gait Function Decreased Activity Tolerance Poor Safety Awareness Comments Gait Comments Pt. walked with FWW initially, then without A.D. x 60 ft. No LOB noted with FWW or without A.D. Pt. does have a cane at home and rails along wall. Pt. advised to use cane and to slow down. Sitting AP, TKE, marching. M5 PT-IP Objective Assessments Start: 08/26/17 15:59 Freq: NEEDED Status: Active Protocol: Document 08/26/17 14:55 AB (Rec: 08/26/17 16:15 AB [id number]) Orientation Orientation/Cognition Level of Alertness Alert Orientation Name Age Birthday Month Date Year Day of Week Place Situation Safety Awareness Decreased Safety Awareness Gross Range of Motion Lower Extremity ROM Assessment Within Functional Limits Strength Lower Extremity Strength Assessment Within Functional Limits M6 PT-IP Treatment Start: 08/26/17 15:59 Freq: NEEDED Status: Active Protocol: Document 08/26/17 14:55 AB (Rec: 08/26/17 16:15 AB [id number]) Physical Therapy Treatment Education Education Provided Safety M7 PT-IP Assessment and Plan Start: 08/26/17 15:59 Freq: NEEDED Status: Active Protocol: Document 08/27/17 09:40 TMS (Rec: 08/27/17 14:54 TMS [email or web address]) PT Summary Assessment and Plan Frequency of Treatment Frequency Of Treatment Once a Day Recommendations To Nursing Amount of Assist Needed Standby Assistance Discharge Recommendations PT Discharge Recommendations Home with Assistance
--- NOTE | 2017-08-27 15:07 | CM.DPC ---
MSP Continued Assessment: 08/27/17 Case reviewed, EMR reviewed and met with patient. Discharge orders have been written by Dr. Maile Edgar. Patient A&O but anxious about pending discharge plan. States clearly that he is not able to return home to [place], on [facility] today. He has no transportation home, [place], does not have friends or relatives who would be able to help with transport home. When asked about spending the night in a local motel, he states, ?I don?t have the money for that! I just need to stay here one more night and then I will be taken home by my friend.? His S/O Chloe Sharma is in [place] on a retreat and cannot be reached. She will be there few more days, and she checks in on him by phone when she can. Per ICU nurse Martin, patient has a sister in [place] and another sister in [facility], but they have both declined to help with patient transportation home or his discharge to them. Patient confirms to [facility] that this is the case. States he has a friend, ?Inocencio? who also cannot be reached currently by phone, but he calls in daily and he is a traveling musician ?on the road? his plan is to chicken picker the patient tomorrow (Sat) and drive him home to [place], and stay with him for a few days while he recovers adequately. Patient is satisfied with this plan and asks for MSP to assist him in this. Patient requested of MSP to get information on [employer], and a brochure and this was given to him. Contacted: Dr. Edgar, who stated patient is ready for d/c. When [facility] explained patient circumstances and DC plan, she still did not want to change the Discharge Order. Contacted: Vivian at [employer]. Told her the situation and likelihood that patient would Appeal the Discharge today. She checked with their medical supply technician and called MSP back, stating that tomorrow, 08/28, is patient?s ?last covered day,? and that if he does not discharge then, he must go through the [employer] Appeals Process. [facility] reiterated this information to her: As long as patient d/c on 08/28, he is fully covered by [employer] plan; she agreed that this is correct. Contacted Dr. Edgar and let her know that patient is covered by his [employer] insurance until 08/28 and if he does not leave by that date, we can then proceed with an Appeal through [employer]. She verbalized understanding. Contacted ICU nurse Martin and told her of the above plan and coverage by [employer]. She was concerned about patient d/c order having already been written and how to have him spend the night, meds, etc. This DCP advised her to contact Dr. Edgar who is aware of the insurance coverage until tomorrow. They will need to work out if d/c order should be changed, etc. NOTE: [employer] Appeal process not yet discussed with patient, as he has anxiety and this would only come into effect if not discharged successfully tomorrow. Plan: Pt to d/c home tomorrow under the care of his friend ?Inocencio? who will transport him home to [place] and stay with him for a few days while he recovers fully. Nerissa Lewis RN
--- NOTE | 2017-08-27 16:23 | PC.NURSE ---
Pt attempting to arrange safe discharge. Call received from pt sister, Haylie. She states that neither her or Krysta are available to transport pt home. Pt states that he phoned a friend on [employer] who is also unavailable. Pt significant other, Chloe Sharma, phoned in stating that she has attempted to contact people to assist. States her greatest concern is that pt be discharged alone. She states that pt is talking about calling a cab and [place] and asking neighbors if they are able to pick him up at [place] ferry [place] on [facility]. Pt S.O. expressing concerns r/t the safety of this plan. Martin MCDONALD reports having spoken with Nerissa, manager research development, and a Page is out to Dr. Edgar r/t complications with discharge.
[2017-08-27] MEDS: ATORVASTATIN 20 MG TABLET 80 MG PO (18:22)
[2017-08-27 19:19] VITALS: BP 170/73; PULSE 73; RESP 19; TEMP 37.1; O2SAT 97
[2017-08-27 20:58] VITALS: BP 170/73; PULSE 73
[2017-08-27] MEDS: CARVEDILOL 3.125 MG TABLET PO (20:58)
[2017-08-28 02:42] VITALS: BP 140/69; PULSE 65; RESP 16; TEMP 36.6; O2SAT 97
[2017-08-28 08:28] VITALS: BP 132/72; PULSE 78; RESP 18; TEMP 37; O2SAT 98
[2017-08-28] MEDS: lamoTRIgine 100 MG TABLET 150 MG PO (08:33)
[2017-08-28] MEDS: AMOXICILLIN/CLAV 875/125 MG 1 TAB PO (08:34)
[2017-08-28] MEDS: CLOPIDOGREL 75 MG TABLET PO (08:34)
[2017-08-28] MEDS: ASPIRIN EC 81 MG TABLET PO (08:34)
--- NOTE | 2017-08-28 09:52 | PC.NURSE ---
Shift summary, discharge: IV's dc'd at earlier date. Reviewed all d/c instructions thoroughly. New scripts sent to his pharmacy, instructed to stop Coreg until his follow up appt. Instructed to call PCP to schedule follow up within 7-10 days. Home meds retrieved from pharmacy. All other belongings sent at discharge including wallet (and all contents), glasses, cellphone, insurance coordinator, etc. Given education info on both new meds, as well as aspiration pneumonia and seizure disorders. Instructed to call MD with any s/sx listed in d/c papers, or with any other concerns that may arise prior to follow up. Verbalized understanding of all d/c info and stated no further questions. Walked out to private vehicle accompanied by this song writer.
--- NOTE | 2017-08-28 10:33 | CM.DPC ---
DCP: continued: case received, EMR reviewed and note that pt did d/c today as planned at about 929. (see HARRY Childs's note).
== END 2017-08-28 09:56 | disposition home or self-care (01) | DRG 208 ==
LOC: ED 14:47 → ICU 15:26
PROVIDERS: Internal Medicine; Admitting Provider Internal Medicine; Emergency Provider Emergency Medicine; Family Provider Family Medicine; PCP Family Medicine; Visit Provider Internal Medicine
DX: J96.00 Acute respiratory failure, unspecified whether with hypoxia or hypercapnia (principal); J69.0 Pneumonitis due to inhalation of food and vomit; G40.909 Epilepsy, unspecified, not intractable, without status epilepticus; R11.0 Nausea; R00.1 Bradycardia, unspecified
CPT/HCPCS: 36000; 36415; 36592; 36600; 51705; 71045; 80048; 80053; 80061; 82805; 83690; 84145; 85025; 87040; 87070; 87205; 87797; 92950; 93005; 93010; 93041; 94770; 94799; 96365; 96375; 97116; 97161; 97530; 99285; 99291; 99292; C9113; J1650; J1953; J1956; J2405; J2704; J3010

== ENCOUNTER → 2020-09-19 13:17 | Outpatient (CLI) | payer MEDICARE, MEDICAID, SELFPAY ==
[2020-09-13 11:39] VITALS: PULSE 63; BMI 20.5
[2020-09-19 19:49] LABS: Add Manual Diff / Slide Review NO; Basophils Absolute Auto 0 /uL (0-100); Basophils Percent Auto 0.3 % (0-2); Eosinophils Absolute Auto 100 /uL (0-450); Eosinophils Percent Auto 1.6 % (2-4); Hematocrit 38.2 % (41-53); Hemoglobin 12.8 g/dL (13.5-17.5); Lymphocytes Absolute Auto 1400 /uL (1100-4500); Lymphocytes Percent Auto 17.4 % (25-40); Mean Corpuscular HGB Conc 33.5 % (30-36); Mean Corpuscular Hemoglobin 30.8 PG (26-34); Monocytes Absolute Auto 700 /uL (0-900); Monocytes Percent Auto 8.6 % (3-14); Neutrophils Absolute Auto 5700 /uL (1500-7000); Neutrophils Percent Auto 72.1 % (50-75); Platelet Count 216 X10^3/uL (150-400); Red Blood Cell Count 4.16 X10^6/uL (4.5-5.9); Red Cell Distribution Width 13.8 % (11.6-14.8); White Blood Cell Count 7.9 X10^3/uL (4.5-11.0)
[2020-09-19 19:55] LABS: Reticulocyte Count, Percent 0.6 % (0.87-2.60)
[2020-09-19 20:03] LABS: HEMOLYSIS < 15 (0-50); Iron 73 ug/dL (49-181)
[2020-09-19 20:20] LABS: Percent Iron Saturation 18 % (20-50); Total Iron Binding Capacity 398 ug/dL (261-462); Transferrin 291 mg/dL (206-381)
[2020-09-19 20:23] LABS: Alanine Aminotransferase 17 IU/L (<50); Albumin 4.2 g/dL (3.5-5.0); Albumin Globulin Ratio 1.7 (1.0-2.8); Alkaline Phosphatase 76 U/L (38-126); Aspartate Aminotransferase 24 IU/L (17-59); BUN Creatinine Ratio 20.3 (6-22); Bilirubin Total 0.4 mg/dL (0.2-1.3); Blood Urea Nitrogen 14 mg/dL (9-20); Calcium 9.4 mg/dL (8.4-10.2); Carbon Dioxide 29 mmol/L (22-32); Chloride 103 mmol/L (98-107); Cholesterol 101 mg/dL (140-199); Estimated Glomerular Filt Rate > 60.0 mL/min (>60); Globulin 2.5 g/dL (1.7-4.1); Glucose 86 mg/dL (80-110); HDL Cholesterol 50 mg/dL (40-60); HEMOLYSIS < 15 (0-50); LDL Cholesterol Calculated 34 mg/dL (<100); Potassium 4.4 mmol/L (3.4-5.1); Sodium 138 mmol/L (137-145); Total Protein 6.7 g/dL (6.3-8.2); Triglycerides 87 mg/dL (35-150)
[2020-09-19 20:48] LABS: Ferritin 17 ng/mL (18-464)
== END ==
PROVIDERS: Family Provider Family Medicine; PCP Family Medicine; Visit Provider Family Medicine
DX: D50.9 Iron deficiency anemia, unspecified (principal); G40.909 Epilepsy, unspecified, not intractable, without status epilepticus; I25.10 Atherosclerotic heart disease of native coronary artery without angina pectoris
CPT/HCPCS: 80053; 80061; 82728; 83540; 83550; 85025; 85045

== ENCOUNTER → 2020-12-05 07:43 | Outpatient (CLI) | payer MEDICARE, MEDICAID, SELFPAY ==
[2020-09-13 11:39] VITALS: PULSE 63; BMI 20.5
[2020-12-09 08:50] LABS: Fecal Immunochemical Test Positive (Negative)
== END ==
PROVIDERS: Family Provider Family Medicine; PCP Family Medicine; Visit Provider Family Medicine
DX: D50.9 Iron deficiency anemia, unspecified (principal); Z12.11 Encounter for screening for malignant neoplasm of colon
CPT/HCPCS: 82274

== ENCOUNTER → 2021-01-02 11:28 | Outpatient (CLI) | payer MEDICARE, MEDICAID, SELFPAY ==
[2020-09-13 11:39] VITALS: PULSE 63; BMI 20.5
[2021-01-02 19:40] LABS: Add Manual Diff / Slide Review NO; Basophils Absolute Auto 100 /uL (0-100); Basophils Percent Auto 0.6 % (0-2); Eosinophils Absolute Auto 100 /uL (0-450); Eosinophils Percent Auto 1.6 % (2-4); Hematocrit 39.9 % (41-53); Hemoglobin 13.1 g/dL (13.5-17.5); Lymphocytes Absolute Auto 1200 /uL (1100-4500); Lymphocytes Percent Auto 13.7 % (25-40); Mean Corpuscular HGB Conc 32.7 % (30-36); Mean Corpuscular Hemoglobin 30.4 PG (26-34); Mean Corpuscular Volume 92.9 fL (80-100); Monocytes Absolute Auto 800 /uL (0-900); Monocytes Percent Auto 9.2 % (3-14); Neutrophils Absolute Auto 6700 /uL (1500-7000); Neutrophils Percent Auto 74.9 % (50-75); Platelet Count 250 X10^3/uL (150-400); Red Cell Distribution Width 13.6 % (11.6-14.8)
[2021-01-02 20:12] LABS: HEMOLYSIS < 15 (0-50); Iron 163 ug/dL (49-181)
[2021-01-02 20:29] LABS: Percent Iron Saturation 40 % (20-50); Total Iron Binding Capacity 408 ug/dL (261-462); Transferrin 301 mg/dL (206-381)
[2021-01-02 20:40] LABS: Ferritin 16 ng/mL (18-464)
== END ==
PROVIDERS: Family Provider Family Medicine; PCP Physician Assistant; Visit Provider Family Medicine
DX: D64.9 Anemia, unspecified (principal); R56.9 Unspecified convulsions; D50.9 Iron deficiency anemia, unspecified
CPT/HCPCS: 82728; 83540; 83550; 85025

== ENCOUNTER → 2021-07-22 07:02 | Outpatient (CLI) | payer MEDICARE, OTHER, MEDICAID, SELFPAY ==
[2021-07-17 14:25] VITALS: PULSE 63; BMI 20.5
[2021-07-22 19:42] LABS: COVID19 - ORCAS (NP or Nasal) Negative (Negative)
== END ==
PROVIDERS: Family Provider Family Medicine; PCP Physician Assistant; Visit Provider Physician Assistant
DX: Z20.822 Contact with and (suspected) exposure to COVID-19 (principal); Z01.812 Encounter for preprocedural laboratory examination
CPT/HCPCS: C9803; U0003

== ENCOUNTER 2021-07-23 11:01 | Day surgery (SDC) | payer MEDICARE, OTHER, MEDICAID, SELFPAY ==
[2021-07-17 14:25] VITALS: PULSE 63; BMI 20.5
[2021-07-23 11:23] VITALS: BMI 21.7
[2021-07-23 11:33] VITALS: BP 155/75; PULSE 65; RESP 15; TEMP 36.6; O2SAT 95
[2021-07-23] MEDS: SODIUM CHLORIDE 0.9% 1,000 ML 70 ML IV (11:33)
--- NOTE | 2021-07-23 12:07 | PM.HP.1 ---
History of Present Illness History of Present Illness Date Patient Seen: 07/23/21 Time Patient Seen: 12:00 Chief complaint: SDC Narrative: Patient is a very pleasant 71-year-old male who presented for colonoscopy. He has a recent history fecal occult blood testing that was positive with anemia. His last Plavix was 5 days ago. Patient History Medical History Chronic back pain Myocardial infarction Nausea and vomiting RSV (respiratory syncytial virus infection) Seizure disorder UTI (urinary tract infection) Vomiting, unspecified Surgical History (Updated 08/25/17 @ 16:42 by Christy Cornejo RN) History of heart artery stent Family & Social History Social History: household members significant other Tobacco & Substance use: Smoking Status Former smoker alcohol intake former Substance Use Type marijuana Meds Home Medications and Allergies Home Medications Medication Instructions Recorded Confirmed Type aspirin 81 mg tablet,delayed 81 mg PO DAILY 08/25/17 07/23/21 History release lamotrigine 150 mg tablet 150 mg PO BID #180 tab 02/06/21 07/23/21 Rx sildenafil 100 mg tablet 100 mg PO DAILY PRN #30 tab 02/06/21 07/23/21 Rx atorvastatin 80 mg tablet See Rx Instructions .ROUTE 06/30/21 07/23/21 Rx .COMPLEX #90 tab clopidogrel 75 mg tablet See Rx Instructions .ROUTE 06/30/21 07/23/21 Rx .COMPLEX #90 tab diazepam 5 mg tablet 5 mg PO BEDTIME PRN #60 tab 07/01/21 07/23/21 Rx clobetasol 0.05 % topical cream 1 applic TOPICAL BID #45 g 07/02/21 07/17/21 Rx nitroglycerin 0.4 mg sublingual 0.4 mg SUBLINGUAL Q5M PRN #25 tab 07/17/21 07/17/21 Rx tablet (Nitrostat) Allergies Allergy/AdvReac Type Severity Reaction Status Date / Time codeine Allergy Mild Verified 07/23/21 11:29 gabapentin AdvReac Mild CAUSED Verified 07/23/21 11:29 SEVERE DEPRESSION hydrocodone AdvReac Unknown Verified 07/23/21 11:29 NARCOTIC ANALGESICS Allergy Unknown Uncoded 07/23/21 11:29 Review of Systems Review of Systems ROS: Yes All systems reviewed with the patient and are negative except as otherwise documented Exam Vital Signs (past 8 hours): - 05/18/22 11:33 Temperature 97.9 F Pulse Rate 65 Respiratory Rate 15 Blood Pressure 155/75 H Pulse Oximetry 95 Oxygen Delivery Method Room Air Const General: cooperative, healthy appearing, comfortable, well developed and No acute distress HENMT Head: normocephalic and atraumatic Resp Effort & Inspection: normal respiratory effort, able to speak in complete sentences and no audible wheezes Auscultation: clear to auscultation bilaterally Cardio Rate: regular rate Rhythm: regular rhythm Extrem General: no clubbing, cyanosis or edema Assessment & Plan Assessment & Plan narrative: 1. Fecal occult test positive 2. Anemia -colonoscopy today, further recommendations to follow Time Spent With Patient Critical Care time: I spent a total of [] minutes of critical care time on this patient's care today; this time is exclusive of procedural time.
--- NOTE | 2021-07-23 12:40 | PM.OP.COLON ---
Operative Date/Time/Diagnoses Date of procedure: 07/23/21 Time of procedure: 12:20 Procedure Notes Procedure in detail: Surgeon: Ellyn Michelle DO Procedure: Colonoscopy Preoperative diagnosis: 1. Fecal occult test positive 2. Anemia Postoperative diagnosis: 1. Sigmoid and descending colon diverticulosis 2. Grade 1 internal hemorrhoids 3. Otherwise unremarkable colonoscopy to the cecum Medications: Monitored anesthesia care Preanesthesia Assessment An H and P was performed/updated and the Px?s ASA class is 3. The procedure was discussed in detail with the patient. The potential risks and complications including infection, bleeding, missed lesions, perforation, need for surgery in case of perforation, prolonged hospital stay, and were explained. A brief question and answer period was allotted and once all questions were answered, informed consent was obtained. The patient was brought back to the procedure room and placed on standard monitoring. The patient?s vital signs were monitored continuously throughout the entire procedure. Prior to starting, a timeout was performed to confirm the patient?s identity, allergies, medications, and procedure. Procedure in detail The patient was placed in left lateral decubitus position and once adequate sedation was obtained a SHELBY was performed. The digital rectal examination did not reveal any palpable lesions. The tip of the colonoscope was placed in the anal canal and advanced without difficulty all the way to the cecum which was identified by the appendiceal orifice and the ileocecal valve. Careful examination of all fried of the colon was performed with irrigation of any residual stool. Patient was noted to have sigmoid and descending colon diverticulosis. Grade 1 internal hemorrhoids were noted on retroflexion. Colonoscopy was otherwise unremarkable. The patient tolerated the procedure well and will be brought back to the recovery area to be discharged once criteria are met. The prep was judged to be good/excellent and adequate to identify polyps less than 5 mm. The withdrawal time was 11min. Complications There were no complications and estimated blood loss was minimal. Recommendations: Resume previous diet Continue outPx medications Resume Plavix today Repeat colonoscopy in 10 years, although at that time age will be near 82, recommend office visit prior to determine if further surveillance is warranted. Office follow up to be scheduled to discuss next steps for workup of anemia. An emergency contact number was given to the patient for any complications related to the procedure
[2021-07-23 12:43] VITALS: BP 129/69; PULSE 62; RESP 15; TEMP 36.1; O2SAT 99
[2021-07-23 12:48] VITALS: BP 128/73; PULSE 58; RESP 15; O2SAT 99
[2021-07-23 12:53] VITALS: BP 150/67; PULSE 57; RESP 15; O2SAT 99
[2021-07-23 12:58] VITALS: BP 141/70; PULSE 55; RESP 12; O2SAT 97
[2021-07-23 13:04] VITALS: BP 144/69; PULSE 58; RESP 18; O2SAT 96
== END 2021-07-23 13:17 | disposition home or self-care (01) ==
PROVIDERS: Family Provider Family Medicine; PCP Physician Assistant; Referring Provider Student in an Organized Health Care Education/Training Program; Visit Provider Student in an Organized Health Care Education/Training Program
PROC: 0DJD8ZZ Inspection of Lower Intestinal Tract, Via Natural or Artificial Opening Endoscopic (ICD-10-PCS; CPT 45378; principal; 2021-07-23 11:00)
DX: R19.5 Other fecal abnormalities (principal); D64.9 Anemia, unspecified; I25.2 Old myocardial infarction; G40.909 Epilepsy, unspecified, not intractable, without status epilepticus; Z79.01 Long term (current) use of anticoagulants; K57.30 Diverticulosis of large intestine without perforation or abscess without bleeding; K64.0 First degree hemorrhoids
CPT/HCPCS: 45378; J2704

== ENCOUNTER → 2021-09-15 13:02 | Outpatient (CLI) | payer MEDICARE, OTHER, MEDICAID, SELFPAY ==
[2021-07-17 14:25] VITALS: PULSE 63; BMI 20.5
[2021-09-15 19:25] LABS: Add Manual Diff / Slide Review NO; Basophils Absolute Auto 0 /uL (0-100); Basophils Percent Auto 0.6 % (0-2); Eosinophils Absolute Auto 100 /uL (0-450); Eosinophils Percent Auto 1.3 % (2-4); Hematocrit 37.3 % (41-53); Hemoglobin 12.8 g/dL (13.5-17.5); Lymphocytes Absolute Auto 1100 /uL (1100-4500); Lymphocytes Percent Auto 15.2 % (25-40); Mean Corpuscular HGB Conc 34.2 % (30-36); Mean Corpuscular Hemoglobin 31.4 PG (26-34); Mean Corpuscular Volume 91.8 fL (80-100); Monocytes Absolute Auto 600 /uL (0-900); Monocytes Percent Auto 8.6 % (3-14); Neutrophils Absolute Auto 5600 /uL (1500-7000); Neutrophils Percent Auto 74.3 % (50-75); Platelet Count 234 X10^3/uL (150-400); Red Blood Cell Count 4.07 X10^6/uL (4.5-5.9); White Blood Cell Count 7.5 X10^3/uL (4.5-11.0)
[2021-09-15 19:29] LABS: HEMOLYSIS < 15 (0-50); Iron 93 ug/dL (49-181)
[2021-09-15 19:39] LABS: Percent Iron Saturation 25 % (20-50); Total Iron Binding Capacity 368 ug/dL (261-462); Transferrin 272 mg/dL (206-381)
== END ==
PROVIDERS: Family Provider Family Medicine; PCP Physician Assistant; Visit Provider Internal Medicine Gastroenterology
DX: D64.9 Anemia, unspecified (principal)
CPT/HCPCS: 83540; 83550; 85025

== ENCOUNTER → 2021-09-29 13:19 | Outpatient (CLI) | payer MEDICARE, OTHER, MEDICAID, SELFPAY ==
[2021-07-17 14:25] VITALS: PULSE 63; BMI 20.5
[2021-09-29 19:55] LABS: Add Manual Diff / Slide Review NO; Basophils Absolute Auto 0 /uL (0-100); Basophils Percent Auto 0.5 % (0-2); Eosinophils Absolute Auto 100 /uL (0-450); Eosinophils Percent Auto 1.5 % (2-4); Hematocrit 40.6 % (41-53); Hemoglobin 13.8 g/dL (13.5-17.5); Lymphocytes Absolute Auto 1200 /uL (1100-4500); Lymphocytes Percent Auto 17.2 % (25-40); Mean Corpuscular HGB Conc 33.9 % (30-36); Mean Corpuscular Hemoglobin 31.3 PG (26-34); Mean Corpuscular Volume 92.3 fL (80-100); Monocytes Absolute Auto 700 /uL (0-900); Monocytes Percent Auto 9.2 % (3-14); Neutrophils Absolute Auto 5100 /uL (1500-7000); Neutrophils Percent Auto 71.6 % (50-75); Platelet Count 202 X10^3/uL (150-400); White Blood Cell Count 7.1 X10^3/uL (4.5-11.0)
[2021-09-29 20:05] LABS: Alanine Aminotransferase 16 IU/L (<50); Albumin 4.4 g/dL (3.5-5.0); Albumin Globulin Ratio 1.8 (1.0-2.8); Alkaline Phosphatase 77 U/L (38-126); Aspartate Aminotransferase 24 IU/L (17-59); BUN Creatinine Ratio 22.1 (6-22); Bilirubin Total 0.6 mg/dL (0.2-1.3); Blood Urea Nitrogen 19 mg/dL (9-20); Calcium 9.5 mg/dL (8.4-10.2); Carbon Dioxide 28 mmol/L (22-32); Chloride 102 mmol/L (98-107); Cholesterol 106 mg/dL (140-199); Estimated Glomerular Filt Rate > 60 mL/min (>60); Globulin 2.4 g/dL (1.7-4.1); Glucose 96 mg/dL (80-110); HDL Cholesterol 48 mg/dL (40-60); HEMOLYSIS < 15 (0-50); LDL Cholesterol Calculated 44 mg/dL (<100); Potassium 4.2 mmol/L (3.4-5.1); Sodium 136 mmol/L (137-145); Total Protein 6.8 g/dL (6.3-8.2); Triglycerides 70 mg/dL (35-150)
[2021-09-29 20:34] LABS: Prostate Specific Antigen Scrn 1.78 ng/mL (0.1-4.0)
[2021-09-29 20:45] LABS: TSH w/ Reflex to FT4 1.18 uIU/mL (0.47-4.68)
== END ==
PROVIDERS: Family Provider Family Medicine; PCP Family Medicine; Visit Provider Family Medicine
DX: D50.9 Iron deficiency anemia, unspecified (principal); Z12.5 Encounter for screening for malignant neoplasm of prostate; I25.10 Atherosclerotic heart disease of native coronary artery without angina pectoris; R41.0 Disorientation, unspecified; F10.21 Alcohol dependence, in remission; F41.1 Generalized anxiety disorder; N40.1 Benign prostatic hyperplasia with lower urinary tract symptoms; N52.8 Other male erectile dysfunction; Z79.899 Other long term (current) drug therapy; Z98.61 Coronary angioplasty status; A41.1 Sepsis due to other specified staphylococcus; D64.9 Anemia, unspecified; G40.909 Epilepsy, unspecified, not intractable, without status epilepticus
CPT/HCPCS: 80053; 80061; 84443; 85025; G0103

== ENCOUNTER → 2021-12-24 14:50 | Outpatient (CLI) | payer MEDICARE, OTHER, MEDICAID, SELFPAY ==
[2021-07-17 14:25] VITALS: PULSE 63; BMI 20.5
[2021-12-24 19:43] LABS: Add Manual Diff / Slide Review NO; Basophils Absolute Auto 100 /uL (0-100); Basophils Percent Auto 0.9 % (0-2); Eosinophils Absolute Auto 200 /uL (0-450); Eosinophils Percent Auto 2.4 % (2-4); Hematocrit 40.3 % (41-53); Hemoglobin 13.7 g/dL (13.5-17.5); Lymphocytes Absolute Auto 1300 /uL (1100-4500); Lymphocytes Percent Auto 18.5 % (25-40); Mean Corpuscular HGB Conc 34.1 % (30-36); Mean Corpuscular Volume 90.9 fL (80-100); Monocytes Absolute Auto 600 /uL (0-900); Monocytes Percent Auto 9.4 % (3-14); Neutrophils Absolute Auto 4700 /uL (1500-7000); Neutrophils Percent Auto 68.8 % (50-75); Platelet Count 181 X10^3/uL (150-400); Red Blood Cell Count 4.44 X10^6/uL (4.5-5.9); Red Cell Distribution Width 13.6 % (11.6-14.8); White Blood Cell Count 6.8 X10^3/uL (4.5-11.0)
[2021-12-24 20:24] LABS: Prostate Specific Antigen Scrn 1.84 ng/mL (0.1-4.0)
[2021-12-26 13:17] LABS: Interpretation Negative (Negative)
== END ==
PROVIDERS: Family Provider Family Medicine; PCP Family Medicine; Visit Provider Family Medicine
DX: K29.70 Gastritis, unspecified, without bleeding (principal); D50.9 Iron deficiency anemia, unspecified; Z12.5 Encounter for screening for malignant neoplasm of prostate; R19.5 Other fecal abnormalities; N40.1 Benign prostatic hyperplasia with lower urinary tract symptoms; R30.0 Dysuria
CPT/HCPCS: 83013; 85025; G0103

== ENCOUNTER → 2022-02-11 12:11 | Outpatient (CLI) | payer MEDICARE, OTHER, MEDICAID, SELFPAY ==
[2021-07-17 14:25] VITALS: PULSE 63; BMI 20.5
[2022-02-11 20:00] LABS: Cholesterol 71 mg/dL (140-199); HDL Cholesterol 38 mg/dL (40-60); LDL Cholesterol Calculated 23 mg/dL (<100); Triglycerides 49 mg/dL (35-150)
== END ==
PROVIDERS: Family Provider Family Medicine; PCP Family Medicine; Visit Provider Family Medicine
DX: N52.8 Other male erectile dysfunction (principal); E78.2 Mixed hyperlipidemia; I25.10 Atherosclerotic heart disease of native coronary artery without angina pectoris
CPT/HCPCS: 80061

== ENCOUNTER → 2022-04-14 14:25 | Outpatient (CLI) | payer MEDICARE, OTHER, MEDICAID, SELFPAY ==
[2021-07-17 14:25] VITALS: PULSE 63; BMI 20.5
[2022-04-14 19:16] LABS: Add Manual Diff / Slide Review NO; Basophils Absolute Auto 0 /uL (0-100); Basophils Percent Auto 0.4 % (0-2); Eosinophils Absolute Auto 200 /uL (0-450); Eosinophils Percent Auto 2.3 % (2-4); Hematocrit 41.2 % (41-53); Hemoglobin 13.8 g/dL (13.5-17.5); Lymphocytes Absolute Auto 1300 /uL (1100-4500); Lymphocytes Percent Auto 18.5 % (25-40); Mean Corpuscular HGB Conc 33.5 % (30-36); Mean Corpuscular Hemoglobin 31.4 PG (26-34); Mean Corpuscular Volume 93.9 fL (80-100); Monocytes Absolute Auto 700 /uL (0-900); Monocytes Percent Auto 9.1 % (3-14); Neutrophils Absolute Auto 5100 /uL (1500-7000); Neutrophils Percent Auto 69.7 % (50-75); Platelet Count 187 X10^3/uL (150-400); Red Blood Cell Count 4.38 X10^6/uL (4.5-5.9); Red Cell Distribution Width 13.3 % (11.6-14.8); White Blood Cell Count 7.3 X10^3/uL (4.5-11.0)
[2022-04-14 19:27] LABS: Alanine Aminotransferase 49 IU/L (<50); Albumin 4.1 g/dL (3.5-5.0); Albumin Globulin Ratio 1.7 (1.0-2.8); Alkaline Phosphatase 80 U/L (38-126); Aspartate Aminotransferase 40 IU/L (17-59); BUN Creatinine Ratio 25.7 (6-22); Bilirubin Total 0.8 mg/dL (0.2-1.3); Blood Urea Nitrogen 19 mg/dL (9-20); Calcium 9.2 mg/dL (8.4-10.2); Carbon Dioxide 27 mmol/L (22-32); Chloride 101 mmol/L (98-107); Estimated Glomerular Filt Rate > 60 mL/min (>60); Globulin 2.4 g/dL (1.7-4.1); Glucose 91 mg/dL (80-110); HEMOLYSIS 17 (0-50); Potassium 4.4 mmol/L (3.4-5.1); Sodium 138 mmol/L (137-145); Total Protein 6.5 g/dL (6.3-8.2)
[2022-04-14 19:55] LABS: Thyroid Stimulating Hormone 1.37 uIU/mL (0.47-4.68)
== END ==
PROVIDERS: Family Provider Family Medicine; PCP Family Medicine; Visit Provider Family Medicine
DX: R30.9 Painful micturition, unspecified (principal); F41.1 Generalized anxiety disorder; D50.9 Iron deficiency anemia, unspecified; I10 Essential (primary) hypertension; I25.2 Old myocardial infarction; Z79.899 Other long term (current) drug therapy
CPT/HCPCS: 80053; 84443; 85025

== ENCOUNTER → 2022-08-20 12:05 | Outpatient (CLI) | payer MEDICARE, OTHER, SELFPAY ==
[2022-08-12 10:09] VITALS: PULSE 63; BMI 20.5
== END ==
PROVIDERS: Family Provider Family Medicine; PCP Family Medicine; Visit Provider Family Medicine
DX: Z79.899 Other long term (current) drug therapy (principal); R11.2 Nausea with vomiting, unspecified
CPT/HCPCS: 87077; 87086; 87186

== ENCOUNTER → 2022-08-24 11:48 | Outpatient (CLI) | payer MEDICARE, OTHER, SELFPAY ==
[2022-08-12 10:09] VITALS: PULSE 63; BMI 20.5
[2022-08-24 20:12] LABS: Add Manual Diff / Slide Review NO; Basophils Absolute Auto 100 /uL (0-100); Basophils Percent Auto 0.6 % (0-2); Eosinophils Absolute Auto 100 /uL (0-450); Eosinophils Percent Auto 1.2 % (2-4); Hematocrit 41.7 % (41-53); Hemoglobin 14.3 g/dL (13.5-17.5); Lymphocytes Absolute Auto 1600 /uL (1100-4500); Lymphocytes Percent Auto 15.7 % (25-40); Mean Corpuscular HGB Conc 34.3 % (30-36); Mean Corpuscular Hemoglobin 31.6 PG (26-34); Mean Corpuscular Volume 92.1 fL (80-100); Monocytes Absolute Auto 1000 /uL (0-900); Monocytes Percent Auto 9.9 % (3-14); Neutrophils Absolute Auto 7600 /uL (1500-7000); Neutrophils Percent Auto 72.6 % (50-75); Platelet Count 231 X10^3/uL (150-400); Red Blood Cell Count 4.53 X10^6/uL (4.5-5.9); Red Cell Distribution Width 13.9 % (11.6-14.8); White Blood Cell Count 10.5 X10^3/uL (4.5-11.0)
[2022-08-24 20:25] LABS: Alanine Aminotransferase 26 IU/L (<50); Albumin 3.9 g/dL (3.5-5.0); Albumin Globulin Ratio 1.5 (1.0-2.8); Alkaline Phosphatase 77 U/L (38-126); Aspartate Aminotransferase 28 IU/L (17-59); BUN Creatinine Ratio 14.6 (6-22); Blood Urea Nitrogen 14 mg/dL (9-20); Calcium 9.1 mg/dL (8.4-10.2); Carbon Dioxide 28 mmol/L (22-32); Chloride 100 mmol/L (98-107); Estimated Glomerular Filt Rate > 60 mL/min (>60); Globulin 2.6 g/dL (1.7-4.1); Glucose 98 mg/dL (80-110); HEMOLYSIS 19 (0-50); Potassium 3.6 mmol/L (3.4-5.1); Sodium 136 mmol/L (137-145); Total Protein 6.5 g/dL (6.3-8.2)
[2022-08-27 14:13] LABS: Lamotrigine Lamictal 11.7 ug/mL (2.0-20.0)
== END ==
PROVIDERS: Family Provider Family Medicine; PCP Family Medicine; Visit Provider Family Medicine
DX: R11.2 Nausea with vomiting, unspecified (principal); D50.9 Iron deficiency anemia, unspecified; F10.21 Alcohol dependence, in remission; G40.001 Localization-related (focal) (partial) idiopathic epilepsy and epileptic syndromes with seizures of localized onset, not intractable, with status epilepticus; I25.2 Old myocardial infarction; Z79.899 Other long term (current) drug therapy
CPT/HCPCS: 80053; 80175; 85025

== ENCOUNTER → 2022-08-27 10:42 | Outpatient (CLI) | payer MEDICARE, OTHER, SELFPAY ==
[2022-08-12 10:09] VITALS: PULSE 63; BMI 20.5
--- NOTE | 2022-08-27 10:43 | DI.CT.S_ITS ---
PROCEDURE: CT ABDOMEN PELVIS W CON INDICATIONS: nausea vomiting and seizure disorder TECHNIQUE: After the administration of oral and intravenous contrast, axial sections were acquired from the lung bases to the pubic symphysis. Coronal and sagittal reformats were performed. For radiation dose reduction, the following was used: automated exposure control, adjustment of mA and/or kV according to patient size. COMPARISON: None. FINDINGS: Image quality: Good Lower chest: Mild basal scarring/atelectasis. Patulous distal esophagus, possibly reflux or retained ingested contrast. Coronary calcifications present. Solid organs: Liver is unremarkable. Gallbladder is unremarkable. No pathologic dilation of the biliary tree or pancreatic duct. No splenomegaly. No adrenal nodules. No hydronephrosis. Possible tiny nonobstructing left interpolar region renal calculus. Vessels and lymph nodes: The main portal vein is patent. No abdominal aortic aneurysm. No pathologic adenopathy by size criteria. Bowel and peritoneum: No evidence of small bowel obstruction. Numerous colonic diverticula are present. Fecal loading is moderate. No pathologic ascites or abscess. Body wall: Small fat containing umbilical hernia. Pelvis: Dystrophic calcifications of the prostate. Bladder is under distended. Bones: No acute or suspicious osseous finding. There are degenerative changes. IMPRESSION: No evidence of small bowel obstruction. No significant inflammation, abscess, pathologic ascites, or other acute abdominal pelvic abnormality. Mildly thickened distal esophageal wall with possible reflux of oral contrast. This could be further evaluated with fluoroscopy or endoscopy if necessary. Moderate fecal loading. Coronary calcifications. Other findings as above. Dictated by: Kaleb Troy M.D. on 08/27/2022 at 13:53 Approved by: Kaleb Troy M.D. on 08/27/2022 at 14:01
--- NOTE | 2022-08-27 10:43 | DI.CT.S_ITS ---
PROCEDURE: CT HEAD/BRAIN WO CON INDICATIONS: nausea vomiting and seizure disorder TECHNIQUE: Noncontrast 4.5 mm thick angled axial sections acquired from the foramen magnum to the vertex, with coronal and sagittal reformats. For radiation dose reduction, the following was used: automated exposure control, adjustment of mA and/or kV according to patient size. COMPARISON: [facility], MR, BRAIN (IAC) W&WO CONTRAST, 06/26/2015, 13:02. [facility], CT, CT ABDOMEN PELVIS W CON, 08/27/2022, 12:17. FINDINGS: Image quality: Excellent. CSF spaces: Basal cisterns are patent. No extra-axial fluid collections. The ventricles are symmetric in size and shape. Brain: No intracranial bleeds or masses. There is cerebral volume loss for age, with resultant ventricular and sulcal prominence. There are periventricular and deep white matter chronic small vessel ischemic changes. There is intracranial internal carotid artery atherosclerosis. Note is made of a cavum septum pellucidum. When discovered in isolation, this is considered to be a developmental variant of no clinical consequence. Skull and face: Calvarium and visualized facial bones appear intact, without suspicious lesions. Sinuses: Visualized sinuses and mastoids are clear. IMPRESSION: Stable intracranial study, without a significant abnormality for age. Dictated by: Kareem Odom M.D. on 08/27/2022 at 11:38 Approved by: Kareem Odom M.D. on 08/27/2022 at 11:40
== END ==
PROVIDERS: Family Provider Family Medicine; PCP Family Medicine; Referring Provider Family Medicine; Visit Provider Family Medicine
DX: G40.001 Localization-related (focal) (partial) idiopathic epilepsy and epileptic syndromes with seizures of localized onset, not intractable, with status epilepticus (principal); R11.2 Nausea with vomiting, unspecified; I25.10 Atherosclerotic heart disease of native coronary artery without angina pectoris; K57.90 Diverticulosis of intestine, part unspecified, without perforation or abscess without bleeding; K42.1 Umbilical hernia with gangrene
CPT/HCPCS: 70450; 74177; Q9967

== ENCOUNTER 2022-09-14 11:32 | Day surgery (SDC) | payer MEDICARE, OTHER, MEDICAID, SELFPAY ==
[2022-08-12 10:09] VITALS: PULSE 63; BMI 20.5
[2022-09-14 12:12] VITALS: BP 122/65; PULSE 56; RESP 18; TEMP 36.2; O2SAT 97; BMI 20.2
[2022-09-14] MEDS: LACTATED RINGERS 1,000 ML 84 ML IV (12:25)
--- NOTE | 2022-09-14 13:35 | PM.HP.1 ---
History of Present Illness History of Present Illness Date Patient Seen: 09/14/22 Time Patient Seen: 13:36 Chief complaint: EGD Narrative: Fawad is a 72 year old man who had a recent positive fit test. He had a colonoscopy last November by Dr. Michelle that was normal. He would a recent CT scan of the abdomen pelvis which showed some questionable thickening of the distal esophagus but was otherwise normal. He notes that he takes Plavix normally but held it for the past 3 days. He believes he takes Plavix for cardiac stents. [facility] Medical History (Updated 09/11/22 @ 07:21 by Jerad Villanueva MD) Chronic back pain Myocardial infarction RSV (respiratory syncytial virus infection) Seizure disorder Vomiting, unspecified Surgical History (Updated 04/03/22 @ 13:30 by Jerad Villanueva MD) History of heart artery stent Social History household members: spouse Smoking Status: Former smoker alcohol intake: former Meds Home Medications and Allergies Home Medications Medication Instructions Recorded Confirmed Type ezetimibe 10 mg tablet (Zetia) 10 mg PO DAILY #90 tabs 12/17/21 09/14/22 Rx clobetasol 0.05 % topical cream 1 applic topical BID #60 grams 04/03/22 09/14/22 Rx clopidogrel 75 mg tablet See Rx Instructions .Route 06/09/22 09/14/22 Rx .COMPLEX #90 tabs diazepam 5 mg tablet See Rx Instructions PO BEDTIME PRN 06/11/22 09/14/22 Rx sleep #60 tabs sildenafil 100 mg tablet 100 mg PO DAILY PRN sexual 06/24/22 09/14/22 Rx activity #30 tabs atorvastatin 80 mg tablet See Rx Instructions .Route 07/31/22 09/14/22 Rx .COMPLEX #90 tabs lamotrigine 150 mg tablet See Rx Instructions .Route 07/31/22 09/14/22 Rx .COMPLEX #180 tabs metoprolol succinate 25 mg 25 mg PO DAILY #90 tabs 07/31/22 09/14/22 Rx tablet,extended release 24 hr ondansetron 4 mg disintegrating See Rx Instructions PO Q8H PRN 09/11/22 09/14/22 Rx tablet nausea and vomiting #30 tabs Allergies Allergy/AdvReac Type Severity Reaction Status Date / Time codeine Allergy Mild Verified 09/14/22 12:00 gabapentin AdvReac Mild CAUSED Verified 09/14/22 12:00 SEVERE DEPRESSION hydrocodone AdvReac Unknown Verified 09/14/22 12:00 NARCOTIC ANALGESICS Allergy Unknown Uncoded 08/26/22 14:37 Exam Vital Signs (past 8 hours): - 09/14/22 12:12 Temperature 97.1 F L Pulse Rate 56 L Respiratory Rate 18 Blood Pressure 122/65 Pulse Oximetry 97 Oxygen Delivery Method Room Air Oxygen Delivery Method Room Air Const General: healthy appearing Resp Effort & Inspection: normal respiratory effort Assessment & Plan Assessment and plan (1) Positive FIT (fecal immunochemical test): Status: Acute (2) Nausea and vomiting: Qualifiers: Vomiting type: unspecified Qualified Code(s): R11.2 - Nausea with vomiting, unspecified Status: Acute Plan We will proceed with esophagogastroduodenoscopy. We reviewed the risks and benefits and he would like to proceed.
--- NOTE | 2022-09-14 14:03 | PM.OP.EGD ---
Operative Date/Time/Diagnoses Date of procedure: 09/14/22 Time of procedure: 14:03 Pre-op diagnosis: Positive fit test Post-op diagnosis: same Procedure & Clinicians Study performed: Esophagogastroduodenoscopy Same procedure as scheduled: Yes Surgeon: Pietro Nathan Procedure Notes Procedure in detail: Surgeon: Pietro Nathan MD Anesthesia: Carline Nation DO A timeout was performed. A bite blocked was placed. The patient was positioned in the left lateral decubitus position. Anesthesia was administered. The endoscope was inserted through the bite block and passed through the esophagus and stomach and into the duodenum. The duodenal mucosa appeared normal. The scope was withdrawn into the duodenal bulb and no abnormalities were seen. The scope was withdrawn into the stomach. No abnormalities were seen. The rest of the stomach was normal. The scope was retroflexed and abnormalities were seen. The scope was withdrawn into the esophagus and abnormalities seen. The remainder of the esophagus was normal. The scope was withdrawn. The patient was awakened and brought to recovery. Sedation time: 3 minutes Findings: Normal esophagus, stomach and duodenum Post-procedure Disposition: PACU
[2022-09-14 14:07] VITALS: BP 132/68; PULSE 63; RESP 22; TEMP 36.3; O2SAT 95
[2022-09-14 14:12] VITALS: BP 125/71; PULSE 59; RESP 22; TEMP 36.3; O2SAT 95
[2022-09-14 14:17] VITALS: BP 129/67; PULSE 59; RESP 15; TEMP 36.4; O2SAT 98
[2022-09-14 14:27] VITALS: BP 129/67; PULSE 59; RESP 16; TEMP 36.4; O2SAT 98
== END 2022-09-14 14:29 | disposition home or self-care (01) ==
PROVIDERS: Family Provider Family Medicine; PCP Family Medicine; Referring Provider Surgery; Visit Provider Surgery
PROC: 0DJ08ZZ Inspection of Upper Intestinal Tract, Via Natural or Artificial Opening Endoscopic (ICD-10-PCS; CPT 43235; principal; 2022-09-14 13:00)
DX: R11.2 Nausea with vomiting, unspecified (principal); R19.5 Other fecal abnormalities
CPT/HCPCS: 44376; 43235; J2704

== ENCOUNTER → 2023-04-07 11:33 | Outpatient (CLI) | payer MEDICARE, OTHER, MEDICAID, SELFPAY ==
[2022-08-12 10:09] VITALS: PULSE 63; BMI 20.5
[2023-04-07 20:28] LABS: Add Manual Diff / Slide Review NO; Basophils Absolute Auto 0 /uL (0-100); Basophils Percent Auto 0.5 % (0-2); Eosinophils Absolute Auto 200 /uL (0-450); Eosinophils Percent Auto 2.4 % (2-4); Hematocrit 38.5 % (41-53); Hemoglobin 12.8 g/dL (13.5-17.5); Lymphocytes Absolute Auto 1100 /uL (1100-4500); Mean Corpuscular HGB Conc 33.4 % (30-36); Mean Corpuscular Volume 92.8 fL (80-100); Monocytes Absolute Auto 700 /uL (0-900); Monocytes Percent Auto 10.5 % (3-14); Neutrophils Absolute Auto 4500 /uL (1500-7000); Neutrophils Percent Auto 69.6 % (50-75); Platelet Count 201 X10^3/uL (150-400); Red Blood Cell Count 4.14 X10^6/uL (4.5-5.9); Red Cell Distribution Width 13.4 % (11.6-14.8); White Blood Cell Count 6.4 X10^3/uL (4.5-11.0)
[2023-04-07 20:33] LABS: Alanine Aminotransferase 31 IU/L (<50); Albumin 3.8 g/dL (3.5-5.0); Albumin Globulin Ratio 1.6 (1.0-2.8); Alkaline Phosphatase 75 U/L (38-126); Aspartate Aminotransferase 35 IU/L (17-59); BUN Creatinine Ratio 21.9 (6-22); Bilirubin Total 0.8 mg/dL (0.2-1.3); Blood Urea Nitrogen 16 mg/dL (9-20); Carbon Dioxide 27 mmol/L (22-32); Chloride 102 mmol/L (98-107); Cholesterol 76 mg/dL (140-199); Estimated Glomerular Filt Rate > 60 mL/min (>60); Globulin 2.4 g/dL (1.7-4.1); Glucose 103 mg/dL (80-110); HDL Cholesterol 45 mg/dL (40-60); HEMOLYSIS < 15 (0-50); LDL Cholesterol Calculated 24 mg/dL (<100); Potassium 4.4 mmol/L (3.4-5.1); Sodium 136 mmol/L (137-145); Total Protein 6.2 g/dL (6.3-8.2); Triglycerides 34 mg/dL (35-150)
[2023-04-07 21:02] LABS: TSH w/ Reflex to FT4 0.89 uIU/mL (0.47-4.68)
== END ==
PROVIDERS: Family Provider Family Medicine; PCP Family Medicine; Visit Provider Family Medicine
DX: I10 Essential (primary) hypertension (principal); F10.21 Alcohol dependence, in remission; E78.2 Mixed hyperlipidemia; D50.9 Iron deficiency anemia, unspecified; G40.001 Localization-related (focal) (partial) idiopathic epilepsy and epileptic syndromes with seizures of localized onset, not intractable, with status epilepticus; Z79.899 Other long term (current) drug therapy
CPT/HCPCS: 80053; 80061; 84443; 85025

== ENCOUNTER → 2024-03-15 13:02 | Outpatient (CLI) | payer MEDICARE, OTHER, MEDICAID, SELFPAY ==
[2022-08-12 10:09] VITALS: PULSE 63; BMI 20.5
[2024-03-15 19:51] LABS: Reticulocyte Count, Percent 0.5 % (0.9-2.6)
[2024-03-15 19:52] LABS: Add Manual Diff / Slide Review NO; Basophils Absolute Auto 0 /uL (0-100); Basophils Percent Auto 0.4 % (0-2); Eosinophils Absolute Auto 200 /uL (0-450); Eosinophils Percent Auto 1.9 % (2-4); Hematocrit 40.3 % (41-53); Hemoglobin 13.4 g/dL (13.5-17.5); Lymphocytes Absolute Auto 1300 /uL (1100-4500); Lymphocytes Percent Auto 16.2 % (25-40); Mean Corpuscular HGB Conc 33.3 % (30-36); Mean Corpuscular Hemoglobin 30.9 PG (26-34); Mean Corpuscular Volume 92.6 fL (80-100); Monocytes Absolute Auto 800 /uL (0-900); Monocytes Percent Auto 9.2 % (3-14); Neutrophils Absolute Auto 6000 /uL (1500-7000); Neutrophils Percent Auto 72.3 % (50-75); Platelet Count 238 X10^3/uL (150-400); Red Blood Cell Count 4.35 X10^6/uL (4.5-5.9); Red Cell Distribution Width 13.9 % (11.6-14.8); White Blood Cell Count 8.3 X10^3/uL (4.5-11.0)
[2024-03-15 20:50] LABS: Vitamin B12 474 pg/mL (239-931)
[2024-03-15 21:12] LABS: HEMOLYSIS < 15 (0-50); Iron 60 ug/dL (49-181)
[2024-03-15 21:14] LABS: Alanine Aminotransferase 31 IU/L (<50); Albumin 4.4 g/dL (3.5-5.0); Albumin Globulin Ratio 1.8 (1.0-2.8); Alkaline Phosphatase 109 U/L (38-126); Aspartate Aminotransferase 38 IU/L (17-59); BUN Creatinine Ratio 16.9 (6-22); Bilirubin Total 0.7 mg/dL (0.2-1.3); Bilirubin Unconjugated 0.4 mg/dL (0.0-1.1); Blood Urea Nitrogen 14 mg/dL (9-20); Calcium 9.6 mg/dL (8.4-10.2); Carbon Dioxide 29 mmol/L (22-32); Chloride 102 mmol/L (98-107); Cholesterol 96 mg/dL (140-199); Estimated Glomerular Filt Rate > 60 mL/min (>60); Globulin 2.5 g/dL (1.7-4.1); Glucose 108 mg/dL (80-110); HDL Cholesterol 51 mg/dL (40-60); HEMOLYSIS 15 (0-50); LDL Cholesterol Calculated 35 mg/dL (<100); Potassium 4.5 mmol/L (3.4-5.1); Sodium 136 mmol/L (137-145); Total Protein 6.9 g/dL (6.3-8.2); Triglycerides 52 mg/dL (35-150)
[2024-03-15 21:23] LABS: Percent Iron Saturation 15 % (20-50); Total Iron Binding Capacity 400 ug/dL (261-462); Transferrin 348 mg/dL (206-381)
== END ==
PROVIDERS: Family Provider Family Medicine; PCP Family Medicine; Visit Provider Family Medicine
DX: Z12.5 Encounter for screening for malignant neoplasm of prostate (principal); I65.29 Occlusion and stenosis of unspecified carotid artery; F10.90 Alcohol use, unspecified, uncomplicated; I10 Essential (primary) hypertension; E78.2 Mixed hyperlipidemia; I25.10 Atherosclerotic heart disease of native coronary artery without angina pectoris; Z98.61 Coronary angioplasty status; D50.9 Iron deficiency anemia, unspecified; I25.2 Old myocardial infarction; F51.05 Insomnia due to other mental disorder; G40.001 Localization-related (focal) (partial) idiopathic epilepsy and epileptic syndromes with seizures of localized onset, not intractable, with status epilepticus
CPT/HCPCS: 80053; 80061; 80076; 82607; 83540; 83550; 85025; 85045; G0103